=== PATIENT | male | born 1945 | race Two or more races ===

== ENCOUNTER → 2016-08-05 | Outpatient (CLI) | payer OTHER ==
[2016-08-05 14:51] LABS: Basophils # (auto) 0 uL; Basophils % (auto) 0.5 % (0.0-2.0); Eosinophils # (auto) 0.2 uL; Eosinophils % (auto) 2.6 % (0.0-7.0); Hematocrit 45.5 % (41.0-53.0); Lymphocytes # (auto) 2.1 uL; Lymphocytes % (auto) 33.8 % (10.0-50.0); Mean Corpuscular Hemoglobin 28.4 pg (28.0-32.0); Mean Corpuscular Volume 86.1 fL (80.0-100.0); Monocytes # (auto) 0.6 uL; Monocytes % (auto) 9.7 % (0.0-12.0); Neutrophils # (auto) 3.3 uL; Neutrophils % (auto) 53.4 % (37.0-80.0); Platelet Count (auto) 259 10^3/uL (140-450); Red Cell Distribution Width 14.1 % (11.6-16.0); White Blood Cell 6.2 10^3/uL (4.4-10.8)
[2016-08-05 15:08] LABS: Albumin 3.7 g/dL (3.4-5.0); BUN/Creatinine Ratio 10.4; Bilirubin, Total 0.4 mg/dL (0.2-1.0); Calcium 8.7 mg/dL (8.5-10.1); Potassium 3.8 mmol/L (3.5-5.1); Total Protein 7.7 g/dL (6.4-8.2)
== END | disposition home or self-care (01) ==
LOC: LAB 14:23
PROVIDERS: ATTEND Internal Medicine
DX: I10 Essential (primary) hypertension (principal)
CPT/HCPCS: 36415; 80053; 84153; 84403; 85025

== ENCOUNTER → 2016-08-22 | Day surgery (SDC) | payer OTHER ==
[2016-08-19 16:37] LABS: Basophils # (auto) 0 uL; Basophils % (auto) 0.5 % (0.0-2.0); Eosinophils # (auto) 0.2 uL; Eosinophils % (auto) 2.3 % (0.0-7.0); Hematocrit 48.7 % (41.0-53.0); Hemoglobin 15.7 g/dL (13.5-17.5); Lymphocytes # (auto) 2.2 uL; Mean Corpuscular Hemoglobin 28.2 pg (28.0-32.0); Mean Corpuscular Hgb Conc. 32.2 g/dL (32.0-36.0); Mean Corpuscular Volume 87.4 fL (80.0-100.0); Mean Platelet Volume 8.8 fL (7.4-10.4); Monocytes # (auto) 0.5 uL; Monocytes % (auto) 7.3 % (0.0-12.0); Neutrophils # (auto) 3.7 uL; Neutrophils % (auto) 55.9 % (37.0-80.0); Platelet Count (auto) 273 10^3/uL (140-450); Red Cell Distribution Width 14.2 % (11.6-16.0); White Blood Cell 6.6 10^3/uL (4.4-10.8)
[2016-08-19 16:48] LABS: INR 0.97 (0.9-1.15); Partial Thromboplastin Time 31.3 sec (22.64-33.71); Prothrombin Time 10.5 sec (9.37-12.3)
[~2016-08-22] VITALS: Ht 177.8 cm; Wt 117.9 kg
[~2016-08-22] MED LIST: ALLO300T2 PO; ASPI-231 PO; CHOL200031 PO; LISI10TA6 PO; LOVA40TA72 PO; SODIUM CHLORIDE LOCK 10 ML ONE; TEST1.62 TOP; diphenhdrAMINE HCL 50 MG/1 ML VL ONE
[2016-08-22] MEDS: fentaNYL CITRATE 100 MCG/2 ML VL ONE ×2 (10:18→10:25)
[2016-08-22] MEDS: MIDAZOLAM HCL 5 MG/ML-1ML VIAL ONE ×2 (10:18→10:25)
[2016-08-22 11:10] VITALS: BP 141/69
== END ==
LOC: GI 09:27
PROVIDERS: ATTEND Internal Medicine Gastroenterology
DX: Z12.11 Encounter for screening for malignant neoplasm of colon (principal); K57.30 Diverticulosis of large intestine without perforation or abscess without bleeding; K64.8 Other hemorrhoids; Z80.0 Family history of malignant neoplasm of digestive organs; E66.9 Obesity, unspecified
CPT/HCPCS: 36415; 45378; 85025; 85610; 85730; J1200; J2250; J3010

== ENCOUNTER → 2017-03-05 | Day surgery (SDC) | payer OTHER ==
[2017-03-03 13:25] LABS: Urine Bilirubin Negative (Negative); Urine Blood TRACE /uL (Negative); Urine Color Yellow (Yellow); Urine Glucose Normal (Normal); Urine Ketone Negative (Negative); Urine Mucus FEW (None Seen); Urine Nitrite Negative (Negative); Urine RBC <1 /hpf (0 - 3); Urine Squamous Epithelial Cell FEW /hpf (<5); Urine Urobilinogen Normal (Negative)
[2017-03-03 13:33] LABS: Basophils # (auto) 0.1 uL; Basophils % (auto) 0.9 % (0.0-2.0); Eosinophils # (auto) 0.2 uL; Eosinophils % (auto) 2.3 % (0.0-7.0); Hemoglobin 15.5 g/dL (13.5-17.5); Lymphocytes # (auto) 2.5 uL; Lymphocytes % (auto) 32.3 % (10.0-50.0); Mean Corpuscular Hemoglobin 29.6 pg (28.0-32.0); Mean Corpuscular Hgb Conc. 33.7 g/dL (32.0-36.0); Mean Corpuscular Volume 87.7 fL (80.0-100.0); Mean Platelet Volume 8.1 fL (6.9-10.8); Monocytes # (auto) 0.5 uL; Monocytes % (auto) 7.1 % (0.0-12.0); Neutrophils # (auto) 4.4 uL; Neutrophils % (auto) 57.4 % (37.0-80.0); Nucleated Red Blood Cells % 0.1 %; Platelet Count (auto) 250 10^3/uL (140-450); Red Cell Distribution Width 13.9 % (11.8-14.3); White Blood Cell 7.7 10^3/uL (4.4-10.8)
[2017-03-03 13:40] LABS: Albumin 3.7 g/dL (3.4-5.0); BUN/Creatinine Ratio 10.1; Bilirubin, Total 0.5 mg/dL (0.2-1.0); Calcium 8.8 mg/dL (8.5-10.1); Potassium 4.2 mmol/L (3.5-5.1); Total Protein 8.2 g/dL (6.4-8.2)
[2017-03-03 13:51] LABS: INR 0.94 (0.9-1.15); Prothrombin Time 10.3 sec (9.37-12.3)
[~2017-03-05] VITALS: Ht 177.8 cm; Wt 115.7 kg
[~2017-03-05] MED LIST changes: +DEXAMETHASONE SOD PHOS 10MG/1ML VIAL INJ ONE; +HYDROmorphone HCL 2 MG/ML VL IV PRN; +KETOROLAC TROMETH 30 MG/ML 1ML VIAL IV ONE; +LABETALOL HCL 5 MG/ML 4ML SYRINGE IV PRN; +LIDOCAINE 1% HCL (LOCAL ANESTH.) INJ 20ML MDV ONE; +LORA-654 PO; +METOCLOPRAMIDE HCL 5MG/ml INJ 2ml VIAL ONE; +METOPROLOL TARTRATE 1MG/1ML-5ML VIAL IV ONE; +NALOXONE HCL 0.4 MG/ML VIAL IV PRN; +ONDANSETRON HCL 4 MG/2 ML VIAL IV ONE; +ONDANSETRON HCL 4 MG/2 ML VIAL ONE; +PHENYLEPHRINE HCL 10 MG/ML VL IV ONE; +PROPOFOL 10 MG/ML 20 ML IV ONE; -SODIUM CHLORIDE LOCK 10 ML ONE; +SUCCINYLCHOLINE CHLORIDE 20 MG/ML 10ML VIAL IV ONE; -TEST1.62 TOP; +ceFAZolin 1GM VL ONE; +ceFAZolin 1GM/50ML D5W 50 ML IV ONE; -diphenhdrAMINE HCL 50 MG/1 ML VL ONE; +ePHEDrine SULFATE 50 MG/ML AMP ONE; +fentaNYL CITRATE 100 MCG/2 ML VL ONE; +hydrALAZINE HCL 20 MG/ML VL IV PRN
[2017-03-05 12:10] VITALS: BP 132/84
== END | disposition home or self-care (01) ==
LOC: SUR 06:52
PROVIDERS: ATTEND Surgery
DX: K40.90 Unilateral inguinal hernia, without obstruction or gangrene, not specified as recurrent (principal); E66.01 Morbid (severe) obesity due to excess calories; D69.6 Thrombocytopenia, unspecified; G47.30 Sleep apnea, unspecified; I10 Essential (primary) hypertension; E66.9 Obesity, unspecified; E78.5 Hyperlipidemia, unspecified
CPT/HCPCS: 36415; 49505; 80053; 81001; 85025; 85610; 85730; J0330; J0690; J1100; J1170; J1885; J2001; J2370; J2405; J2704; J2765; J3010

== ENCOUNTER → 2017-10-14 | Outpatient (CLI) | payer OTHER ==
[~2017-10-14] MED LIST changes: -DEXAMETHASONE SOD PHOS 10MG/1ML VIAL INJ ONE; -HYDROmorphone HCL 2 MG/ML VL IV PRN; -KETOROLAC TROMETH 30 MG/ML 1ML VIAL IV ONE; -LABETALOL HCL 5 MG/ML 4ML SYRINGE IV PRN; -LIDOCAINE 1% HCL (LOCAL ANESTH.) INJ 20ML MDV ONE; -METOCLOPRAMIDE HCL 5MG/ml INJ 2ml VIAL ONE; -METOPROLOL TARTRATE 1MG/1ML-5ML VIAL IV ONE; -NALOXONE HCL 0.4 MG/ML VIAL IV PRN; -ONDANSETRON HCL 4 MG/2 ML VIAL IV ONE; -ONDANSETRON HCL 4 MG/2 ML VIAL ONE; -PHENYLEPHRINE HCL 10 MG/ML VL IV ONE; -PROPOFOL 10 MG/ML 20 ML IV ONE; -SUCCINYLCHOLINE CHLORIDE 20 MG/ML 10ML VIAL IV ONE; -ceFAZolin 1GM VL ONE; -ceFAZolin 1GM/50ML D5W 50 ML IV ONE; -ePHEDrine SULFATE 50 MG/ML AMP ONE; -fentaNYL CITRATE 100 MCG/2 ML VL ONE; -hydrALAZINE HCL 20 MG/ML VL IV PRN
[2017-10-14 13:11] LABS: Basophils # (auto) 0.1 uL; Basophils % (auto) 1.2 % (0.0-2.0); Eosinophils # (auto) 0.1 uL; Eosinophils % (auto) 1.9 % (0.0-7.0); Hematocrit 44.6 % (41.0-53.0); Hemoglobin 14.8 g/dL (13.5-17.5); Lymphocytes # (auto) 1.9 uL; Lymphocytes % (auto) 34.3 % (10.0-50.0); Mean Corpuscular Hemoglobin 28.7 pg (28.0-32.0); Mean Corpuscular Hgb Conc. 33.2 g/dL (32.0-36.0); Mean Corpuscular Volume 86.4 fL (80.0-100.0); Monocytes # (auto) 0.4 uL; Monocytes % (auto) 6.5 % (0.0-12.0); Neutrophils # (auto) 3.1 uL; Neutrophils % (auto) 56.1 % (37.0-80.0); Nucleated Red Blood Cells % 0.1 %; Platelet Count (auto) 276 10^3/uL (140-450); Red Blood Cells 5.17 10^6/uL (4.5-5.90); Red Cell Distribution Width 14.2 % (11.8-14.3); White Blood Cell 5.6 10^3/uL (4.4-10.8)
[2017-10-14 13:13] LABS: Urine Bacteria NONE SEEN /hpf (None Seen); Urine Blood TRACE /uL (Negative); Urine Mucus FEW (None Seen); Urine Specific Gravity 1.017 (1.001-1.035); Urine WBC 4 /hpf (0 - 3)
[2017-10-14 14:05] LABS: Albumin 3.6 g/dL (3.4-5.0); BUN/Creatinine Ratio 9.7; Bilirubin, Total 0.6 mg/dL (0.2-1.0); Calcium 8.6 mg/dL (8.5-10.1); Total Protein 7.7 g/dL (6.4-8.2); Uric Acid 7.2 mg/dL (3.5-7.2)
== END | disposition home or self-care (01) ==
LOC: LAB 12:54
PROVIDERS: ATTEND Internal Medicine
DX: I10 Essential (primary) hypertension (principal); N40.0 Benign prostatic hyperplasia without lower urinary tract symptoms; E78.5 Hyperlipidemia, unspecified
CPT/HCPCS: 36415; 80053; 80061; 81001; 82043; 84439; 84443; 84550; 85025; 85652

== ENCOUNTER → 2018-01-13 | Outpatient (CLI) | payer OTHER | END | disposition home or self-care (01) | LOC: LAB 11:56 | PROVIDERS: ATTEND Internal Medicine | DX: N40.0 Benign prostatic hyperplasia without lower urinary tract symptoms (principal); R35.0 Frequency of micturition; I10 Essential (primary) hypertension | CPT/HCPCS: 84153 ==

== ENCOUNTER → 2018-07-22 | Outpatient (CLI) | payer OTHER ==
[2018-07-22 11:15] LABS: Potassium 3.7 mmol/L (3.5-5.1)
[2018-07-22 11:23] LABS: Albumin 3.7 g/dL (3.4-5.0); BUN/Creatinine Ratio 12.2; Bilirubin, Total 0.3 mg/dL (0.2-1.0); Calcium 8.5 mg/dL (8.5-10.1); Total Protein 7.9 g/dL (6.4-8.2); Uric Acid 6.6 mg/dL (3.5-7.2)
[2018-07-22 11:53] LABS: Urine Bacteria NONE SEEN /hpf (None Seen); Urine Blood Negative /uL (Negative); Urine Specific Gravity 1.015 (1.001-1.035); Urine WBC 3 /hpf (0 - 3)
[2018-07-22 15:29] LABS: Hematocrit 46.4 % (41.0-53.0); Hemoglobin 15.4 g/dL (13.5-17.5); Mean Corpuscular Hemoglobin 28.9 pg (28.0-32.0); Mean Corpuscular Hgb Conc. 33.1 g/dL (32.0-36.0); Mean Corpuscular Volume 87.1 fL (80.0-100.0); Platelet Count (auto) 234 10^3/uL (140-450); Red Blood Cells 5.32 10^6/uL (4.5-5.90); Red Cell Distribution Width 14.3 % (11.8-14.3); White Blood Cell 6.2 10^3/uL (4.4-10.8)
[2018-07-22 15:31] LABS: Band Neutrophils % (manual) 0; Basophils % (manual) 0 (0.0-2.0); Blast Cells 0; Metamyelocytes % 0; Myelocytes % 0; Promyelocytes % 0; Reactive Lymphocytes 0
[2018-07-22 16:48] LABS: Eosinophils % (manual) 5 (0-7); Lymphocytes % (manual) 30 (10.0-50.0); Monocytes % (manual) 5 (0-12)
== END | disposition home or self-care (01) ==
LOC: LAB 10:02
PROVIDERS: ATTEND Internal Medicine
DX: I10 Essential (primary) hypertension (principal); Z87.442 Personal history of urinary calculi
CPT/HCPCS: 36415; 80053; 80061; 81001; 82043; 83970; 84439; 84443; 84550; 85007; 85027; 85652

== ENCOUNTER → 2019-07-22 | Outpatient (CLI) | payer OTHER ==
[~2019-07-22] MED LIST changes: -LORA-654 PO; +LORA0.5T12 PO
[2019-07-22 10:46] LABS: Urine Bacteria NONE SEEN /hpf (None Seen); Urine Blood TRACE /uL (Negative); Urine Mucus FEW (None Seen); Urine Specific Gravity 1.017 (1.001-1.035); Urine WBC 1 /hpf (0 - 3)
[2019-07-22 10:48] LABS: Basophils # (auto) 0.1 10 ^3/uL (0-0.2); Basophils % (auto) 0.9 % (0.0-2.0); Eosinophils # (auto) 0.2 10 ^3/uL (0-0.8); Eosinophils % (auto) 2.9 % (0.0-7.0); Hematocrit 46.4 % (41.0-53.0); Hemoglobin 15.4 g/dL (13.5-17.5); Lymphocytes % (auto) 32.7 % (10.0-50.0); Mean Corpuscular Hemoglobin 28.8 pg (28.0-32.0); Mean Corpuscular Hgb Conc. 33.1 g/dL (32.0-36.0); Mean Corpuscular Volume 86.8 fL (80.0-100.0); Monocytes # (auto) 0.5 10 ^3/uL (0-1.3); Monocytes % (auto) 8.2 % (0.0-12.0); Neutrophils # (auto) 3.3 10 ^3/uL (1.6-8.6); Neutrophils % (auto) 55.3 % (37.0-80.0); Nucleated Red Blood Cells % 0.1 %; Platelet Count (auto) 245 10^3/uL (140-450); Red Blood Cells 5.35 10^6/uL (4.5-5.90); Red Cell Distribution Width 13.9 % (11.8-14.3)
[2019-07-22 10:53] LABS: INR 1.04 (0.9-1.15)
[2019-07-22 11:05] LABS: Albumin 3.7 g/dL (3.4-5.0); Calcium 8.9 mg/dL (8.5-10.1); Potassium 3.5 mmol/L (3.5-5.1)
[2019-07-22 11:09] LABS: BUN/Creatinine Ratio 12.4; Bilirubin, Total 0.7 mg/dL (0.2-1.0); Total Protein 7.9 g/dL (6.4-8.2)
== END | disposition home or self-care (01) ==
LOC: LAB 10:15
PROVIDERS: ATTEND Internal Medicine
DX: Z01.812 Encounter for preprocedural laboratory examination (principal); I10 Essential (primary) hypertension; G47.30 Sleep apnea, unspecified; N40.0 Benign prostatic hyperplasia without lower urinary tract symptoms
CPT/HCPCS: 36415; 80053; 80061; 81001; 82043; 84439; 84443; 85025; 85610; 85652

== ENCOUNTER 2020-02-18 15:13 | Emergency (ER) | payer OTHER ==
[~2020-02-18] VITALS: Ht 177.8 cm; Wt 117.5 kg
[2020-02-18] MEDS ORDERED: MORPHINE SULFATE 4 MG/ML SYR/VIAL IV ONE (16:30)
[2020-02-18] MEDS ORDERED: ONDANSETRON HCL 4 MG/2 ML VIAL IV ONE (16:30)
[2020-02-18 16:39] LABS: Basophils # (auto) 0.1 10 ^3/uL (0-0.2); Basophils % (auto) 0.4 % (0.0-2.0); Eosinophils # (auto) 0 10 ^3/uL (0-0.8); Eosinophils % (auto) 0.3 % (0.0-7.0); Hematocrit 45.1 % (41.0-53.0); Hemoglobin 15.1 g/dL (13.5-17.5); Lymphocytes % (auto) 8.3 % (10.0-50.0); Mean Corpuscular Hemoglobin 28.7 pg (28.0-32.0); Mean Corpuscular Hgb Conc. 33.4 g/dL (32.0-36.0); Mean Corpuscular Volume 85.8 fL (80.0-100.0); Monocytes # (auto) 0.6 10 ^3/uL (0-1.3); Monocytes % (auto) 5.1 % (0.0-12.0); Neutrophils # (auto) 10.7 10 ^3/uL (1.6-8.6); Neutrophils % (auto) 85.9 % (37.0-80.0); Nucleated Red Blood Cells % 0.1 %; Platelet Count (auto) 228 10^3/uL (140-450); Red Blood Cells 5.26 10^6/uL (4.5-5.90); Red Cell Distribution Width 14.4 % (11.8-14.3); White Blood Cell 12.5 10^3/uL (4.4-10.8)
[2020-02-18 16:52] LABS: Alanine Aminotransferase 29 U/L (16-61); Albumin 3.8 g/dL (3.4-5.0); Anion Gap 7 (5-15); Aspartate Aminotransferase 19 U/L (15-37); BUN/Creatinine Ratio 11.1; Blood Urea Nitrogen 14 mg/dL (7-18); Calcium 8.5 mg/dL (8.5-10.1); Carbon Dioxide 23 mmol/L (21-32); Chloride 108 mmol/L (98-107); GFR African American 72 mL/min; GFR Non-African American 59 mL/min; Glucose 135 mg/dL (74-106); Potassium 3.3 mmol/L (3.5-5.1); Sodium 138 mmol/L (136-145)
[2020-02-18 16:57] LABS: Alkaline Phosphatase 108 U/L (45-117); Bilirubin, Total 0.4 mg/dL (0.2-1.0); Total Protein 7.8 g/dL (6.4-8.2)
[2020-02-18 17:16] LABS: INR 1.02 (0.9-1.15)
[2020-02-18] MEDS ORDERED: ETOMIDATE (2MG/ML) 20ML VIAL IV ONE (18:00)
[2020-02-18] MEDS ORDERED: POTASSIUM EFFERVESENT TAB 25 MEQ PO ONE (19:00)
[2020-02-18 19:34] VITALS: BP 142/67
== END 2020-02-18 20:25 | disposition home or self-care (01) ==
LOC: ER 15:13 → EDBD 15:13 → ER 20:25
DX: S43.004A Unspecified dislocation of right shoulder joint, initial encounter (principal); S83.91XA Sprain of unspecified site of right knee, initial encounter; M25.461 Effusion, right knee; W18.39XA Other fall on same level, initial encounter; Y93.89 Activity, other specified; Y92.89 Other specified places as the place of occurrence of the external cause; Y99.8 Other external cause status
CPT/HCPCS: 23650; 36415; 71045; 71250; 73030; 73060; 73090; 73560; 80053; 84484; 85025; 85610; 85730; 96374; 96375; 99285; J2270; J2405

== ENCOUNTER → 2020-02-18 | Outpatient (CLI) | payer OTHER ==
[~2020-02-18] MED LIST changes: +LISI-648 PO; -LISI10TA6 PO; -LORA0.5T12 PO; +LORA0.5T20 PO
[2020-02-18 08:36] LABS: Basophils # (auto) 0.1 10 ^3/uL (0-0.2); Basophils % (auto) 1.1 % (0.0-2.0); Eosinophils # (auto) 0.1 10 ^3/uL (0-0.8); Eosinophils % (auto) 2.4 % (0.0-7.0); Hematocrit 46.3 % (41.0-53.0); Lymphocytes # (auto) 1.9 10 ^3/uL (0.4-5.4); Lymphocytes % (auto) 34.7 % (10.0-50.0); Mean Corpuscular Hemoglobin 28.2 pg (28.0-32.0); Mean Corpuscular Hgb Conc. 32.4 g/dL (32.0-36.0); Monocytes # (auto) 0.5 10 ^3/uL (0-1.3); Monocytes % (auto) 8.6 % (0.0-12.0); Neutrophils # (auto) 2.9 10 ^3/uL (1.6-8.6); Neutrophils % (auto) 53.2 % (37.0-80.0); Nucleated Red Blood Cells % 0.1 %; Platelet Count (auto) 226 10^3/uL (140-450); Red Blood Cells 5.32 10^6/uL (4.5-5.90); Red Cell Distribution Width 14.8 % (11.8-14.3); White Blood Cell 5.4 10^3/uL (4.4-10.8)
[2020-02-18 08:56] LABS: Albumin 3.8 g/dL (3.4-5.0); Calcium 8.8 mg/dL (8.5-10.1); Potassium 3.8 mmol/L (3.5-5.1)
[2020-02-18 09:00] LABS: BUN/Creatinine Ratio 10.4; Bilirubin, Total 0.5 mg/dL (0.2-1.0); Total Protein 7.8 g/dL (6.4-8.2); Uric Acid 7.3 mg/dL (3.5-7.2)
== END | disposition home or self-care (01) ==
LOC: LABCORP 08:15
PROVIDERS: ATTEND Internal Medicine
DX: N40.0 Benign prostatic hyperplasia without lower urinary tract symptoms (principal); I10 Essential (primary) hypertension
CPT/HCPCS: 36415; 80053; 84153; 84550; 85025

== ENCOUNTER → 2020-06-16 | Outpatient (CLI) | payer OTHER ==
[2020-06-16 10:21] LABS: Basophils # (auto) 0.1 10 ^3/uL (0-0.2); Eosinophils # (auto) 0.1 10 ^3/uL (0-0.8); Eosinophils % (auto) 2.3 % (0.0-7.0); Hematocrit 44.3 % (41.0-53.0); Hemoglobin 14.9 g/dL (13.5-17.5); Lymphocytes # (auto) 1.7 10 ^3/uL (0.4-5.4); Lymphocytes % (auto) 33.2 % (10.0-50.0); Mean Corpuscular Hemoglobin 29.2 pg (28.0-32.0); Mean Corpuscular Hgb Conc. 33.6 g/dL (32.0-36.0); Mean Corpuscular Volume 86.8 fL (80.0-100.0); Monocytes # (auto) 0.4 10 ^3/uL (0-1.3); Monocytes % (auto) 8.3 % (0.0-12.0); Neutrophils # (auto) 2.9 10 ^3/uL (1.6-8.6); Neutrophils % (auto) 55.2 % (37.0-80.0); Nucleated Red Blood Cells % 0.1 %; Platelet Count (auto) 248 10^3/uL (140-450); Red Blood Cells 5.11 10^6/uL (4.5-5.90); White Blood Cell 5.3 10^3/uL (4.4-10.8)
[2020-06-16 10:22] LABS: Urine Bacteria NONE SEEN /hpf (None Seen); Urine Blood Negative /uL (Negative); Urine Specific Gravity 1.016 (1.001-1.035); Urine WBC 2 /hpf (0 - 3)
[2020-06-16 10:48] LABS: Potassium 3.7 mmol/L (3.5-5.1)
[2020-06-16 10:55] LABS: Albumin 3.6 g/dL (3.4-5.0); BUN/Creatinine Ratio 11.4; Bilirubin, Total 0.5 mg/dL (0.2-1.0); Calcium 8.7 mg/dL (8.5-10.1); Uric Acid 6.9 mg/dL (3.5-7.2)
== END | disposition home or self-care (01) ==
LOC: LAB 09:58
PROVIDERS: ATTEND Internal Medicine
DX: I10 Essential (primary) hypertension (principal); K11.1 Hypertrophy of salivary gland; Z87.39 Personal history of other diseases of the musculoskeletal system and connective tissue
CPT/HCPCS: 36415; 80053; 80061; 81001; 84439; 84443; 84550; 85025; 85652; 86235

== ENCOUNTER → 2020-11-14 | Outpatient (CLI) | payer OTHER ==
[~2020-11-14] MED LIST changes: -LISI-648 PO; +LISI-716 PO
== END | disposition home or self-care (01) ==
LOC: RT 14:29
PROVIDERS: ATTEND Internal Medicine
DX: Z13.0 Encounter for screening for diseases of the blood and blood-forming organs and certain disorders involving the immune mechanism (principal); Z98.890 Other specified postprocedural states; Z79.899 Other long term (current) drug therapy
CPT/HCPCS: 36600; 82805

== ENCOUNTER → 2020-11-28 | Outpatient (CLI) | payer OTHER | END | disposition home or self-care (01) | LOC: LAB 14:39 | PROVIDERS: ATTEND Internal Medicine | DX: Z01.812 Encounter for preprocedural laboratory examination (principal) | CPT/HCPCS: 36415; 82565; 84520 ==

== ENCOUNTER → 2020-12-11 | Outpatient (CLI) | payer OTHER ==
[2020-12-11 12:48] LABS: Band Neutrophils % (manual) 0; Basophils % (manual) 0 (0.0-2.0); Blast Cells 0; Metamyelocytes % 0; Myelocytes % 0; Promyelocytes % 0; Reactive Lymphocytes 0
[2020-12-11 12:54] LABS: Hematocrit 48.1 % (41.0-53.0); Hemoglobin 16.3 g/dL (13.5-17.5); Mean Corpuscular Hgb Conc. 33.8 g/dL (32.0-36.0); Mean Corpuscular Volume 85.6 fL (80.0-100.0); Red Blood Cells 5.62 10^6/uL (4.5-5.90); Red Cell Distribution Width 14.3 % (11.8-14.3); White Blood Cell 7.3 10^3/uL (4.4-10.8)
[2020-12-11 13:23] LABS: Eosinophils % (manual) 5 (0-7); Lymphocytes % (manual) 14 (10.0-50.0); Monocytes % (manual) 6 (0-12)
[2020-12-11 13:36] LABS: Potassium 3.5 mmol/L (3.5-5.1)
[2020-12-11 13:47] LABS: Albumin 3.6 g/dL (3.4-5.0); BUN/Creatinine Ratio 13.5; Bilirubin, Total 0.5 mg/dL (0.2-1.0); Calcium 8.9 mg/dL (8.5-10.1); Total Protein 7.9 g/dL (6.4-8.2)
== END | disposition home or self-care (01) ==
LOC: LAB 12:03
PROVIDERS: ATTEND Internal Medicine
DX: I10 Essential (primary) hypertension (principal); R21 Rash and other nonspecific skin eruption
CPT/HCPCS: 36415; 80053; 83615; 85007; 85027; 85652; 86225; 86235; 87040

== ENCOUNTER → 2021-01-31 | Outpatient (CLI) | payer OTHER | END | disposition home or self-care (01) | LOC: Rad HDHVI 08:07 | PROVIDERS: ATTEND Internal Medicine Cardiovascular Disease | DX: I08.0 Rheumatic disorders of both mitral and aortic valves (principal); I11.9 Hypertensive heart disease without heart failure; R94.4 Abnormal results of kidney function studies | CPT/HCPCS: 36415; 82565; 84520; 93306 ==

== ENCOUNTER → 2021-02-01 | Outpatient (CLI) | payer OTHER ==
[~2021-02-01] MED LIST changes: +IOHEXOL 350 MG/ML 100ML IJ ONE
[2021-02-01 09:37] VITALS: BP 149/70
[2021-02-01 10:11] VITALS: BP 155/71
== END | disposition home or self-care (01) ==
LOC: Rad HDHVI 09:30
PROVIDERS: ATTEND Internal Medicine Cardiovascular Disease
DX: R06.02 Shortness of breath (principal); I70.0 Atherosclerosis of aorta; I25.10 Atherosclerotic heart disease of native coronary artery without angina pectoris; N28.1 Cyst of kidney, acquired; K44.9 Diaphragmatic hernia without obstruction or gangrene; M47.814 Spondylosis without myelopathy or radiculopathy, thoracic region; R42 Dizziness and giddiness; M54.2 Cervicalgia
CPT/HCPCS: 70491; 71260; G0463; Q9967

== ENCOUNTER → 2021-03-28 | Outpatient (CLI) | payer OTHER ==
[~2021-03-28] MED LIST changes: +AMLO-489 PO; -ASPI-231 PO; +ASPI1TAB20 PO; -IOHEXOL 350 MG/ML 100ML IJ ONE
[2021-03-28 10:18] VITALS: BP 156/87
[2021-03-28 10:31] VITALS: BP 148/76
[2021-03-28 11:52] LABS: Basophils # (auto) 0.1 10 ^3/uL (0-0.2); Basophils % (auto) 1.2 % (0.0-2.0); Eosinophils # (auto) 0.2 10 ^3/uL (0-0.8); Eosinophils % (auto) 3.8 % (0.0-7.0); Hematocrit 45.4 % (41.0-53.0); Hemoglobin 14.9 g/dL (13.5-17.5); Lymphocytes # (auto) 1.8 10 ^3/uL (0.4-5.4); Lymphocytes % (auto) 39.1 % (10.0-50.0); Mean Corpuscular Hemoglobin 28.6 pg (28.0-32.0); Mean Corpuscular Hgb Conc. 32.9 g/dL (32.0-36.0); Mean Corpuscular Volume 86.8 fL (80.0-100.0); Monocytes # (auto) 0.4 10 ^3/uL (0-1.3); Monocytes % (auto) 9.8 % (0.0-12.0); Neutrophils # (auto) 2.1 10 ^3/uL (1.6-8.6); Neutrophils % (auto) 46.1 % (37.0-80.0); Nucleated Red Blood Cells % 0.2 %; Red Blood Cells 5.23 10^6/uL (4.5-5.90); Red Cell Distribution Width 13.8 % (11.8-14.3); White Blood Cell 4.5 10^3/uL (4.4-10.8)
[2021-03-28 12:13] LABS: INR 1.03 (0.9-1.15); Partial Thromboplastin Time 30.8 sec (23.6-33.0)
[2021-03-28 12:14] LABS: Potassium 4.2 mmol/L (3.5-5.1)
[2021-03-28 12:26] LABS: BUN/Creatinine Ratio 9.2; Calcium 8.6 mg/dL (8.5-10.1)
== END | disposition home or self-care (01) ==
LOC: Rad HDHVI 10:02
PROVIDERS: ATTEND Internal Medicine Cardiovascular Disease
DX: Z01.812 Encounter for preprocedural laboratory examination (principal); I11.0 Hypertensive heart disease with heart failure; I50.9 Heart failure, unspecified; I70.0 Atherosclerosis of aorta
CPT/HCPCS: 36415; 71046; 80048; 85025; 85610; 85730; 93005; G0463

== ENCOUNTER 2021-04-03 11:20 | Day surgery (SDC) | payer OTHER ==
[~2021-04-03] VITALS: Ht 177.8 cm; Wt 117.9 kg
[~2021-04-03 11:20] MED LIST changes: -ALLO300T2 PO; -LISI-716 PO; -LORA0.5T20 PO
[2021-04-03] MEDS ORDERED: IODIXANOL 320MG/ML 100ML BTL IV ONE (12:40)
[2021-04-03] MEDS ORDERED: LIDOCAINE 2%HCL (LOCAL ANESTH.) INJ 20ML MDV ONE (12:40)
[2021-04-03] MEDS ORDERED: fentaNYL CITRATE 100 MCG/2 ML VL ONE (12:59)
[2021-04-03] MEDS ORDERED: MIDAZOLAM HCL 2MG/2ML 2ml VIAL (1mg/ml) ONE (12:59)
[2021-04-03] MEDS ORDERED: ANGIOMAX 250 MG VIAL IV ONE (13:02)
[2021-04-03] MEDS ORDERED: SODIUM CHL 0.9% 0 ML ONE (13:02)
[2021-04-03] MEDS ORDERED: VERAPAMIL 2.5MG/ML INJ 2ML VIAL IV ONE (13:17)
[2021-04-03] MEDS ORDERED: HEPARIN SODIUM (PORCINE) 5000 UNITS/ML 1ML VIAL ONE (14:01)
== END 2021-04-03 16:30 | disposition home or self-care (01) ==
LOC: CATH 11:20
PROVIDERS: ATTEND Internal Medicine Cardiovascular Disease
DX: R94.39 Abnormal result of other cardiovascular function study (principal); I25.5 Ischemic cardiomyopathy; I25.10 Atherosclerotic heart disease of native coronary artery without angina pectoris; I10 Essential (primary) hypertension; E78.5 Hyperlipidemia, unspecified; Z82.49 Family history of ischemic heart disease and other diseases of the circulatory system; Z20.822 Contact with and (suspected) exposure to COVID-19; Z98.890 Other specified postprocedural states; Z79.899 Other long term (current) drug therapy; Z79.82 Long term (current) use of aspirin
CPT/HCPCS: 93458; C1769; C1887; C1894; J1644; J2250; J3010; J7030; Q9967; U0003; 99152; 99153

== ENCOUNTER → 2021-06-27 | Outpatient (CLI) | payer OTHER ==
[2021-06-27 11:29] LABS: Urine Bacteria FEW /hpf (None Seen); Urine Blood TRACE /uL (Negative); Urine Specific Gravity 1.012 (1.001-1.035); Urine Sperm PRESENT /hpf (None Seen); Urine WBC 1 /hpf (0 - 3)
[2021-06-27 12:27] LABS: Basophils # (auto) 0.1 10 ^3/uL (0-0.2); Basophils % (auto) 1.1 % (0.0-2.0); Eosinophils # (auto) 0.2 10 ^3/uL (0-0.8); Eosinophils % (auto) 3.5 % (0.0-7.0); Hematocrit 44.2 % (41.0-53.0); Hemoglobin 14.9 g/dL (13.5-17.5); Lymphocytes # (auto) 1.6 10 ^3/uL (0.4-5.4); Lymphocytes % (auto) 29.5 % (10.0-50.0); Mean Corpuscular Hgb Conc. 33.7 g/dL (32.0-36.0); Monocytes # (auto) 0.4 10 ^3/uL (0-1.3); Monocytes % (auto) 6.8 % (0.0-12.0); Neutrophils # (auto) 3.2 10 ^3/uL (1.6-8.6); Neutrophils % (auto) 59.1 % (37.0-80.0); Red Blood Cells 5.14 10^6/uL (4.5-5.90); White Blood Cell 5.4 10^3/uL (4.4-10.8)
[2021-06-27 12:46] LABS: Calcium 8.9 mg/dL (8.5-10.1)
[2021-06-27 12:54] LABS: Albumin 3.7 g/dL (3.4-5.0); BUN/Creatinine Ratio 12.7; Bilirubin, Total 0.4 mg/dL (0.2-1.0); Total Protein 7.7 g/dL (6.4-8.2)
[2021-06-27 12:55] LABS: Free T4 (Free Thyroxine) 1.08 ng/dL (0.89-1.76)
== END | disposition home or self-care (01) ==
LOC: LAB 10:26
PROVIDERS: ATTEND Internal Medicine
DX: L92.0 Granuloma annulare (principal); I10 Essential (primary) hypertension
CPT/HCPCS: 36415; 80053; 80061; 81001; 84153; 84439; 84443; 85025; 85652

== ENCOUNTER 2021-07-07 19:26 | Emergency (ER) | payer OTHER ==
[~2021-07-07] VITALS: Ht 177.8 cm; Wt 117.9 kg
[2021-07-07 23:30] VITALS: BP 120/59
== END 2021-07-07 23:54 | disposition home or self-care (01) ==
LOC: ER 19:28
DX: T78.3XXA Angioneurotic edema, initial encounter (principal); I10 Essential (primary) hypertension; Z88.8 Allergy status to other drugs, medicaments and biological substances; X58.XXXA Exposure to other specified factors, initial encounter

== ENCOUNTER 2021-07-14 11:06 | Emergency (ER) | payer OTHER ==
[~2021-07-14] VITALS: Ht 177.8 cm; Wt 117.9 kg
[2021-07-14] MEDS ORDERED: EPINEPHrine HCL 1 MG/1 ML AMP SC ONE (11:30)
[2021-07-14] MEDS ORDERED: methylPREDNISolone SOD SUCC 125 MG/2 ML VL IM ONE (11:30)
[2021-07-14 11:54] VITALS: BP 167/89
[2021-07-14] MEDS ORDERED: METH4PAK PO (12:38)
== END 2021-07-14 12:42 | disposition home or self-care (01) ==
LOC: ER 11:06
DX: R22.0 Localized swelling, mass and lump, head (principal); T78.3XXD Angioneurotic edema, subsequent encounter; I10 Essential (primary) hypertension; Z88.6 Allergy status to analgesic agent
CPT/HCPCS: 96372; 99284; J0171; J2930

== ENCOUNTER 2021-07-22 16:52 | Emergency (ER) | payer OTHER ==
[~2021-07-22] VITALS: Ht 177.8 cm; Wt 117.9 kg
[~2021-07-22 16:52] MED LIST changes: +METH4PAK PO
[2021-07-22 20:29] VITALS: BP 126/61
[2021-07-22] MEDS ORDERED: DexAMETHasone SOD PHOS 10MG/1ML VIAL INJ IM ONE (21:00)
[2021-07-22] MEDS ORDERED: METH4PAK PO (21:15)
== END 2021-07-22 21:20 | disposition home or self-care (01) ==
LOC: ER 16:52
DX: T78.40XA Allergy, unspecified, initial encounter (principal); I10 Essential (primary) hypertension; Z88.8 Allergy status to other drugs, medicaments and biological substances; X58.XXXA Exposure to other specified factors, initial encounter
CPT/HCPCS: 96372; 99283; J1100

== ENCOUNTER → 2021-10-09 | Outpatient (CLI) | payer OTHER ==
[2021-10-09 11:50] LABS: Basophils # (auto) 0.1 10 ^3/uL (0-0.2); Basophils % (auto) 1.4 % (0.0-2.0); Eosinophils # (auto) 0.1 10 ^3/uL (0-0.8); Eosinophils % (auto) 2.8 % (0.0-7.0); Hematocrit 43.8 % (41.0-53.0); Hemoglobin 14.6 g/dL (13.5-17.5); Lymphocytes # (auto) 1.6 10 ^3/uL (0.4-5.4); Mean Corpuscular Hemoglobin 28.9 pg (28.0-32.0); Mean Corpuscular Hgb Conc. 33.3 g/dL (32.0-36.0); Mean Corpuscular Volume 86.9 fL (80.0-100.0); Monocytes # (auto) 0.3 10 ^3/uL (0-1.3); Monocytes % (auto) 6.7 % (0.0-12.0); Neutrophils # (auto) 2.6 10 ^3/uL (1.6-8.6); Neutrophils % (auto) 55.1 % (37.0-80.0); Nucleated Red Blood Cells % 0.1 %; Red Blood Cells 5.05 10^6/uL (4.5-5.90); White Blood Cell 4.8 10^3/uL (4.4-10.8)
[2021-10-09 11:57] LABS: Urine Bacteria NONE SEEN /hpf (None Seen); Urine Blood TRACE /uL (Negative); Urine Specific Gravity 1.011 (1.001-1.035); Urine WBC 1 /hpf (0 - 3)
[2021-10-09 12:37] LABS: Potassium 3.9 mmol/L (3.5-5.1)
[2021-10-09 12:51] LABS: Albumin 3.5 g/dL (3.4-5.0); BUN/Creatinine Ratio 10.5; Bilirubin, Total 0.4 mg/dL (0.2-1.0); Calcium 8.4 mg/dL (8.5-10.1); Total Protein 7.3 g/dL (6.4-8.2); Uric Acid 6.2 mg/dL (3.5-7.2)
== END | disposition home or self-care (01) ==
LOC: LAB 11:11
PROVIDERS: ATTEND Internal Medicine
DX: I10 Essential (primary) hypertension (principal)
CPT/HCPCS: 36415; 80053; 80061; 81001; 82785; 84439; 84443; 84550; 85025; 85652

== ENCOUNTER → 2022-03-27 | Outpatient (CLI) | payer OTHER ==
[2022-03-27 13:01] LABS: Basophils # (auto) 0.1 10 ^3/uL (0-0.2); Basophils % (auto) 1.2 % (0.0-2.0); Eosinophils # (auto) 0.2 10 ^3/uL (0-0.8); Eosinophils % (auto) 2.3 % (0.0-7.0); Hemoglobin 16.2 g/dL (13.5-17.5); Lymphocytes # (auto) 1.9 10 ^3/uL (0.4-5.4); Lymphocytes % (auto) 28.6 % (10.0-50.0); Mean Corpuscular Hemoglobin 28.7 pg (28.0-32.0); Mean Corpuscular Hgb Conc. 33.1 g/dL (32.0-36.0); Mean Corpuscular Volume 86.8 fL (80.0-100.0); Monocytes # (auto) 0.5 10 ^3/uL (0-1.3); Monocytes % (auto) 7.5 % (0.0-12.0); Neutrophils % (auto) 60.4 % (37.0-80.0); Nucleated Red Blood Cells % 0.1 %; Red Blood Cells 5.65 10^6/uL (4.5-5.90); White Blood Cell 6.6 10^3/uL (4.4-10.8)
[2022-03-27 13:50] LABS: Albumin 3.9 g/dL (3.4-5.0); BUN/Creatinine Ratio 7.3; Bilirubin, Total 0.6 mg/dL (0.2-1.0); Calcium 8.7 mg/dL (8.5-10.1); Potassium 4.1 mmol/L (3.5-5.1); Total Protein 7.7 g/dL (6.4-8.2)
== END | disposition home or self-care (01) ==
LOC: LAB 12:49
PROVIDERS: ATTEND Internal Medicine
DX: I10 Essential (primary) hypertension (principal); K59.00 Constipation, unspecified
CPT/HCPCS: 36415; 80053; 84443; 85025

== ENCOUNTER → 2022-07-01 | Outpatient (CLI) | payer OTHER ==
[2022-07-01 12:22] LABS: Basophils # (auto) 0.1 10 ^3/uL (0-0.2); Basophils % (auto) 1.1 % (0.0-2.0); Eosinophils # (auto) 0.1 10 ^3/uL (0-0.8); Eosinophils % (auto) 2.7 % (0.0-7.0); Hematocrit 45.4 % (41.0-53.0); Hemoglobin 15.7 g/dL (13.5-17.5); Lymphocytes # (auto) 1.7 10 ^3/uL (0.4-5.4); Lymphocytes % (auto) 35.9 % (10.0-50.0); Mean Corpuscular Hemoglobin 30.2 pg (28.0-32.0); Mean Corpuscular Hgb Conc. 34.6 g/dL (32.0-36.0); Mean Corpuscular Volume 87.3 fL (80.0-100.0); Monocytes # (auto) 0.4 10 ^3/uL (0-1.3); Monocytes % (auto) 7.9 % (0.0-12.0); Neutrophils # (auto) 2.5 10 ^3/uL (1.6-8.6); Neutrophils % (auto) 52.4 % (37.0-80.0); Nucleated Red Blood Cells % 0.1 %; Red Cell Distribution Width 14.1 % (11.8-14.3); White Blood Cell 4.7 10^3/uL (4.4-10.8)
[2022-07-01 12:46] LABS: Urine Bacteria NONE SEEN /hpf (None Seen); Urine Blood Negative /uL (Negative); Urine Specific Gravity 1.008 (1.001-1.035); Urine WBC 3 /hpf (0 - 3)
[2022-07-01 12:51] LABS: Albumin 3.7 g/dL (3.4-5.0)
[2022-07-01 12:57] LABS: Free T4 (Free Thyroxine) 1.33 ng/dL (0.89-1.76); Prostate Specific Antigen 3.94 ng/mL (0.0-4.0)
[2022-07-01 12:58] LABS: BUN/Creatinine Ratio 10.7; Bilirubin, Total 0.6 mg/dL (0.2-1.0); CRP High Sensitivity 0.07 mg/dL (< 0.3); Calcium 8.7 mg/dL (8.5-10.1); Total Protein 7.6 g/dL (6.4-8.2)
== END | disposition home or self-care (01) ==
LOC: LAB 11:40
PROVIDERS: ATTEND Internal Medicine
DX: N40.0 Benign prostatic hyperplasia without lower urinary tract symptoms (principal); K59.09 Other constipation; I10 Essential (primary) hypertension; R07.89 Other chest pain
CPT/HCPCS: 36415; 80053; 80061; 81001; 84153; 84439; 84443; 85025; 85652; 86141; 86677

== ENCOUNTER → 2022-07-03 | Outpatient (CLI) | payer OTHER | END | disposition home or self-care (01) | LOC: LAB 14:14 | PROVIDERS: ATTEND Internal Medicine | DX: I10 Essential (primary) hypertension (principal); N40.0 Benign prostatic hyperplasia without lower urinary tract symptoms; R07.89 Other chest pain | CPT/HCPCS: 85048; 87045; 87177; 87427 ==

== ENCOUNTER → 2022-08-19 | Outpatient (CLI) | payer OTHER | END | disposition home or self-care (01) | LOC: LAB 10:39 | PROVIDERS: ATTEND Internal Medicine | DX: R63.4 Abnormal weight loss (principal) | CPT/HCPCS: 36415; 82565; 84520 ==

== ENCOUNTER 2022-09-04 12:36 | Day surgery (SDC) | payer OTHER ==
[2022-09-02 10:41] LABS: Partial Thromboplastin Time 30.8 sec (24.6-33.4)
[2022-09-02 10:54] LABS: Basophils # (auto) 0.1 10 ^3/uL (0-0.2); Basophils % (auto) 1.4 % (0.0-2.0); Eosinophils # (auto) 0.1 10 ^3/uL (0-0.8); Eosinophils % (auto) 2.3 % (0.0-7.0); Hemoglobin 15.8 g/dL (13.5-17.5); Lymphocytes # (auto) 1.6 10 ^3/uL (0.4-5.4); Lymphocytes % (auto) 36.4 % (10.0-50.0); Mean Corpuscular Hemoglobin 29.4 pg (28.0-32.0); Mean Corpuscular Hgb Conc. 33.6 g/dL (32.0-36.0); Mean Corpuscular Volume 87.4 fL (80.0-100.0); Monocytes # (auto) 0.4 10 ^3/uL (0-1.3); Monocytes % (auto) 9.9 % (0.0-12.0); Neutrophils # (auto) 2.2 10 ^3/uL (1.6-8.6); Nucleated Red Blood Cells % 0.4 %; Red Blood Cells 5.38 10^6/uL (4.5-5.90); Red Cell Distribution Width 13.8 % (11.8-14.3); White Blood Cell 4.5 10^3/uL (4.4-10.8)
[2022-09-02 11:01] LABS: Potassium 4.4 mmol/L (3.5-5.1)
[2022-09-02 11:11] LABS: Albumin 3.6 g/dL (3.4-5.0); Bilirubin, Total 0.6 mg/dL (0.2-1.0); Calcium 9.2 mg/dL (8.5-10.1); Total Protein 7.7 g/dL (6.4-8.2)
[~2022-09-04] VITALS: Ht 177.8 cm; Wt 110.2 kg
[~2022-09-04 12:36] MED LIST changes: -LOVA40TA72 PO; -METH4PAK PO
[2022-09-04] MEDS ORDERED: diphenhdrAMINE HCL 50 MG/1 ML VL ONE (12:58)
[2022-09-04] MEDS ORDERED: LIDOCAINE VISCOUS 2% 15ML UD ONE (12:58)
[2022-09-04] MEDS ORDERED: MIDAZOLAM HCL 5 MG/ML-1ML VIAL ONE (12:58)
[2022-09-04] MEDS ORDERED: fentaNYL CITRATE 100 MCG/2 ML VL ONE (12:59)
[2022-09-04] MEDS ORDERED: PROPOFOL 10 MG/ML 20 ML IV ONE (14:03)
[2022-09-04] MEDS ORDERED: LIDOCAINE 2% (LOCAL ANESTH.) PF 5ml SDV ONE (14:04)
[2022-09-04 14:45] VITALS: BP 132/72
== END 2022-09-04 15:03 | disposition home or self-care (01) ==
LOC: GI 12:36
PROVIDERS: ATTEND Internal Medicine Gastroenterology
DX: R10.13 Epigastric pain (principal); K44.9 Diaphragmatic hernia without obstruction or gangrene; K25.9 Gastric ulcer, unspecified as acute or chronic, without hemorrhage or perforation; K59.09 Other constipation; A04.8 Other specified bacterial intestinal infections; K29.50 Unspecified chronic gastritis without bleeding; I11.0 Hypertensive heart disease with heart failure; I50.23 Acute on chronic systolic (congestive) heart failure; Z79.899 Other long term (current) drug therapy; K21.00 Gastro-esophageal reflux disease with esophagitis, without bleeding
CPT/HCPCS: 36415; 43239; 80053; 85025; 85610; 85730; 88305; 88312; 88342; J1200; J2001; J2250; J2704; J3010; J7030

== ENCOUNTER 2023-02-28 07:49 | Day surgery (SDC) | payer OTHER ==
[2023-02-26 15:04] LABS: Basophils # (auto) 0.1 10 ^3/uL (0-0.2); Basophils % (auto) 1.2 % (0.0-2.0); Eosinophils # (auto) 0.1 10 ^3/uL (0-0.8); Hematocrit 46.4 % (41.0-53.0); Hemoglobin 15.4 g/dL (13.5-17.5); Mean Corpuscular Hemoglobin 29.6 pg (28.0-32.0); Mean Corpuscular Hgb Conc. 33.2 g/dL (32.0-36.0); Mean Corpuscular Volume 89.2 fL (80.0-100.0); Monocytes # (auto) 0.5 10 ^3/uL (0-1.3); Monocytes % (auto) 8.3 % (0.0-12.0); Neutrophils # (auto) 3.2 10 ^3/uL (1.6-8.6); Neutrophils % (auto) 54.5 % (37.0-80.0); Nucleated Red Blood Cells % 0.1 %; Red Cell Distribution Width 13.5 % (11.8-14.3); White Blood Cell 5.9 10^3/uL (4.4-10.8)
[2023-02-26 15:11] LABS: INR 1.02 (0.9-1.15); Prothrombin Time 10.7 sec (9.3-11.8)
[2023-02-26 15:44] LABS: Alanine Aminotransferase 13 U/L (7-40); Albumin 4.6 g/dL (3.2-4.8); Alkaline Phosphatase 110 U/L (46-116); Anion Gap 5 (5-15); Aspartate Aminotransferase 13 U/L (13-40); BUN/Creatinine Ratio 8.9 (10.0-20.0); Bilirubin, Total 0.7 mg/dL (0.2-1.0); Blood Urea Nitrogen 11 mg/dL (9-23); Calcium 9.6 mg/dL (8.5-10.1); Carbon Dioxide 28 mmol/L (20-30); Chloride 106 mmol/L (98-107); Glucose 101 mg/dL (74-106); Potassium 5.3 mmol/L (3.5-5.1); Sodium 139 mmol/L (136-145); Total Protein 7.7 g/dL (5.7-8.2)
[~2023-02-28] VITALS: Ht 177.8 cm; Wt 108.9 kg
[~2023-02-28 07:49] MED LIST changes: -AMLO-489 PO; +AMLO1TAB22 PO; +DOCU-94 PO; +LATA0.008 OP; +MELA3TAB27 PO; +TRIA0.02 EX
[2023-02-28 09:09] VITALS: PULSE 84; RESP 16; O2SAT 97
[2023-02-28] MEDS: diphenhdrAMINE HCL 50 MG/1 ML VL ONE ×2 (09:12→09:14)
[2023-02-28] MEDS: fentaNYL CITRATE 100 MCG/2 ML VL ONE ×2 (09:12→09:15)
[2023-02-28] MEDS: MIDAZOLAM HCL 2MG/2ML 2ml VIAL (1mg/ml) ONE ×2 (09:12→09:15)
[2023-02-28 10:20] VITALS: BP 120/74; PULSE 72; RESP 20; O2SAT 98
== END 2023-02-28 10:30 | disposition home or self-care (01) ==
LOC: GI 07:49
PROVIDERS: ATTEND Internal Medicine Gastroenterology
DX: K59.09 Other constipation (principal); K57.30 Diverticulosis of large intestine without perforation or abscess without bleeding; K64.0 First degree hemorrhoids; Z80.0 Family history of malignant neoplasm of digestive organs; I10 Essential (primary) hypertension; E78.5 Hyperlipidemia, unspecified; Z79.899 Other long term (current) drug therapy; Z98.890 Other specified postprocedural states
CPT/HCPCS: 36415; 45380; 80053; 85025; 85610; 85730; J1200; J2250; J3010; J7030; 99152; 99153

== ENCOUNTER → 2023-05-28 | Outpatient (CLI) | payer OTHER ==
[2023-05-28 10:20] LABS: Basophils # (auto) 0.1 10 ^3/uL (0-0.2); Basophils % (auto) 1.1 % (0.0-2.0); Eosinophils # (auto) 0.2 10 ^3/uL (0-0.8); Eosinophils % (auto) 3.3 % (0.0-7.0); Hematocrit 43.6 % (41.0-53.0); Hemoglobin 14.5 g/dL (13.5-17.5); Lymphocytes # (auto) 1.6 10 ^3/uL (0.4-5.4); Lymphocytes % (auto) 24.6 % (10.0-50.0); Mean Corpuscular Hemoglobin 29.7 pg (28.0-32.0); Mean Corpuscular Hgb Conc. 33.2 g/dL (32.0-36.0); Mean Corpuscular Volume 89.4 fL (80.0-100.0); Monocytes # (auto) 0.7 10 ^3/uL (0-1.3); Monocytes % (auto) 10.8 % (0.0-12.0); Neutrophils % (auto) 60.2 % (37.0-80.0); Red Blood Cells 4.88 10^6/uL (4.5-5.90); White Blood Cell 6.6 10^3/uL (4.4-10.8)
[2023-05-28 11:09] LABS: Albumin 4.4 g/dL (3.2-4.8); Alkaline Phosphatase 99 U/L (46-116); Anion Gap 7 (5-15); Aspartate Aminotransferase 12 U/L (13-40); BUN/Creatinine Ratio 12.4 (10.0-20.0); Blood Urea Nitrogen 15 mg/dL (9-23); Calcium 9.2 mg/dL (8.5-10.1); Carbon Dioxide 28 mmol/L (20-30); Chloride 106 mmol/L (98-107); Glucose 94 mg/dL (74-106); Potassium 4.1 mmol/L (3.5-5.1); Sodium 141 mmol/L (136-145)
[2023-05-28 11:10] LABS: Bilirubin, Total 0.7 mg/dL (0.2-1.0); Total Protein 7.1 g/dL (5.7-8.2)
[2023-05-28 11:13] LABS: Alanine Aminotransferase 9 U/L (7-40)
== END | disposition home or self-care (01) ==
LOC: LAB 10:02
PROVIDERS: ATTEND Internal Medicine
DX: M22.90 Unspecified disorder of patella, unspecified knee (principal)
CPT/HCPCS: 36415; 80053; 83615; 85025

== ENCOUNTER → 2023-06-20 | Outpatient (CLI) | payer OTHER | END | disposition home or self-care (01) | LOC: LAB 15:54 | PROVIDERS: ATTEND Internal Medicine | DX: Z01.812 Encounter for preprocedural laboratory examination (principal); R22.42 Localized swelling, mass and lump, left lower limb | CPT/HCPCS: 36415; 82565; 84520 ==

== ENCOUNTER 2023-09-25 13:39 | Emergency (ER) | payer OTHER ==
[~2023-09-25] VITALS: Ht 180.3 cm; Wt 109.0 kg
[2023-09-25 14:42] VITALS: BP 135/77; PULSE 86; RESP 18; TEMP 98.2; O2SAT 98
[2023-09-25] MEDS: LIDOCAINE 1% HCL (LOCAL ANESTH.) INJ 20ML MDV IJ ONE (15:05)
[2023-09-25] MEDS: NEOMYCIN-BACITRACIN-POLYM 15GM TOP OINT TOP ONE (15:30)
[2023-09-25] MEDS ORDERED: CEPH500C PO (15:32)
[2023-09-25] MEDS ORDERED: ACET-1080 PO (15:37)
== END 2023-09-25 14:54 | disposition home or self-care (01) ==
LOC: EDUNIT# 13:39 → ER 13:39 → EDBD 13:39 → ER 14:54
DX: S81.032A Puncture wound without foreign body, left knee, initial encounter (principal); I10 Essential (primary) hypertension; Z79.82 Long term (current) use of aspirin; Z79.899 Other long term (current) drug therapy; Z88.8 Allergy status to other drugs, medicaments and biological substances; X58.XXXA Exposure to other specified factors, initial encounter; Y93.89 Activity, other specified; Y92.89 Other specified places as the place of occurrence of the external cause; Y99.8 Other external cause status
CPT/HCPCS: 12001; 99283; J2001

== ENCOUNTER → 2023-10-02 | Outpatient (CLI) | payer OTHER ==
[~2023-10-02] MED LIST changes: +ACET-1080 PO; +CEPH500C PO
[2023-10-02 11:26] LABS: Basophils # (auto) 0.1 10 ^3/uL (0-0.2); Basophils % (auto) 1.5 % (0.0-2.0); Eosinophils # (auto) 0.2 10 ^3/uL (0-0.8); Eosinophils % (auto) 3.4 % (0.0-7.0); Hematocrit 45.1 % (41.0-53.0); Lymphocytes # (auto) 1.8 10 ^3/uL (0.4-5.4); Lymphocytes % (auto) 29.9 % (10.0-50.0); Mean Corpuscular Hemoglobin 29.1 pg (28.0-32.0); Mean Corpuscular Hgb Conc. 33.3 g/dL (32.0-36.0); Mean Corpuscular Volume 87.6 fL (80.0-100.0); Monocytes # (auto) 0.5 10 ^3/uL (0-1.3); Monocytes % (auto) 7.4 % (0.0-12.0); Neutrophils # (auto) 3.6 10 ^3/uL (1.6-8.6); Neutrophils % (auto) 57.8 % (37.0-80.0); Red Blood Cells 5.15 10^6/uL (4.5-5.90); Red Cell Distribution Width 14.5 % (11.8-14.3); White Blood Cell 6.2 10^3/uL (4.4-10.8)
[2023-10-02 11:45] LABS: INR 1.03 (0.9-1.15); Prothrombin Time 10.9 sec (9.3-11.8)
[2023-10-02 12:02] LABS: Erythrocyte Sedimentation Rate 8 mm/hr (0-20)
[2023-10-02 12:22] LABS: Prostate Specific Antigen 3.43 ng/mL (0.0-4.0)
[2023-10-02 12:23] LABS: Albumin 4.4 g/dL (3.2-4.8); Alkaline Phosphatase 94 U/L (46-116); Anion Gap 4 (5-15); Aspartate Aminotransferase 10 U/L (13-40); BUN/Creatinine Ratio 9.3 (10.0-20.0); Blood Urea Nitrogen 11 mg/dL (9-23); Calcium 9.6 mg/dL (8.5-10.1); Carbon Dioxide 29 mmol/L (20-30); Chloride 107 mmol/L (98-107); Cholesterol 185 mg/dL (< 200); Glucose 92 mg/dL (74-106); LDL Cholesterol 134 mg/dL (< 100); Potassium 4.5 mmol/L (3.5-5.1); Sodium 140 mmol/L (136-145); Triglycerides 103 mg/dL (< 150)
[2023-10-02 12:24] LABS: Bilirubin, Total 0.5 mg/dL (0.2-1.0); HDL Cholesterol 42 mg/dL (40-59); Total Protein 7.3 g/dL (5.7-8.2)
[2023-10-02 12:27] LABS: Free T4 (Free Thyroxine) 1.15 ng/dL (0.89-1.76)
[2023-10-02 12:31] LABS: Alanine Aminotransferase < 9 U/L (7-40)
== END | disposition home or self-care (01) ==
LOC: LAB 11:00
PROVIDERS: ATTEND Internal Medicine
DX: N40.0 Benign prostatic hyperplasia without lower urinary tract symptoms (principal); C49.9 Malignant neoplasm of connective and soft tissue, unspecified; I10 Essential (primary) hypertension
CPT/HCPCS: 36415; 80053; 80061; 84153; 84439; 84443; 85025; 85610; 85652

== ENCOUNTER → 2023-11-26 | Outpatient (CLI) | payer OTHER | END | disposition home or self-care (01) | LOC: LAB 14:17 | PROVIDERS: ATTEND Internal Medicine | DX: C49.9 Malignant neoplasm of connective and soft tissue, unspecified (principal) | CPT/HCPCS: 36415; 82565; 84520 ==

== ENCOUNTER → 2023-12-31 | Outpatient (CLI) | payer OTHER ==
[2023-12-31 11:29] LABS: Urine Bacteria None Seen /hpf (None Seen)
[2023-12-31 11:42] LABS: Basophils # (auto) 0.1 10 ^3/uL (0-0.2); Basophils % (auto) 1.1 % (0.0-2.0); Eosinophils # (auto) 0.2 10 ^3/uL (0-0.8); Eosinophils % (auto) 3.7 % (0.0-7.0); Hematocrit 43.3 % (41.0-53.0); Hemoglobin 14.6 g/dL (13.5-17.5); Lymphocytes # (auto) 1.7 10 ^3/uL (0.4-5.4); Mean Corpuscular Hemoglobin 29.5 pg (28.0-32.0); Mean Corpuscular Hgb Conc. 33.8 g/dL (32.0-36.0); Mean Corpuscular Volume 87.2 fL (80.0-100.0); Monocytes # (auto) 0.6 10 ^3/uL (0-1.3); Monocytes % (auto) 9.3 % (0.0-12.0); Neutrophils # (auto) 3.4 10 ^3/uL (1.6-8.6); Neutrophils % (auto) 56.9 % (37.0-80.0); Platelet Count (auto) 253 10^3/uL (140-450); Red Blood Cells 4.97 10^6/uL (4.5-5.90); Red Cell Distribution Width 14.2 % (11.8-14.3)
[2023-12-31 11:44] LABS: Urine Blood Negative /uL (Negative); Urine Clarity Clear (Clear); Urine Color Yellow (Yellow); Urine Mucus FEW (None Seen); Urine Protein, UAD Negative (Negative); Urine Specific Gravity 1.022 (1.001-1.035); Urine Urobilinogen Normal (Negative); Urine WBC 2 /hpf (0 - 3)
[2023-12-31 11:46] LABS: Prothrombin Time 10.6 sec (9.3-11.8)
[2023-12-31 12:05] LABS: Erythrocyte Sedimentation Rate 23 mm/hr (0-20)
[2023-12-31 12:26] LABS: Albumin 4.2 g/dL (3.2-4.8); Alkaline Phosphatase 104 U/L (46-116); Anion Gap 5 (5-15); Aspartate Aminotransferase 10 U/L (13-40); BUN/Creatinine Ratio 8.5 (10.0-20.0); Blood Urea Nitrogen 10 mg/dL (9-23); Calcium 9.1 mg/dL (8.7-10.4); Carbon Dioxide 27 mmol/L (20-30); Chloride 105 mmol/L (98-107); Glucose 99 mg/dL (74-106); Potassium 4.7 mmol/L (3.5-5.1); Sodium 137 mmol/L (136-145)
[2023-12-31 12:27] LABS: Bilirubin, Total 0.4 mg/dL (0.2-1.0); Total Protein 7.4 g/dL (5.7-8.2)
[2023-12-31 12:29] LABS: Alanine Aminotransferase < 9 U/L (7-40)
== END | disposition home or self-care (01) ==
LOC: LAB 11:15
PROVIDERS: ATTEND Internal Medicine
DX: Z01.812 Encounter for preprocedural laboratory examination (principal); I10 Essential (primary) hypertension; I50.23 Acute on chronic systolic (congestive) heart failure
CPT/HCPCS: 36415; 80053; 81001; 85025; 85610; 85652

== ENCOUNTER → 2024-06-30 | Outpatient (CLI) | payer OTHER ==
[2024-06-30 12:21] LABS: Urine Bacteria None Seen /hpf (None Seen)
[2024-06-30 12:22] LABS: Basophils # (auto) 0 10 ^3/uL (0-0.2); Basophils % (auto) 0.4 % (0.0-2.0); Eosinophils # (auto) 0.3 10 ^3/uL (0-0.8); Eosinophils % (auto) 6.7 % (0.0-7.0); Hematocrit 44.5 % (41.0-53.0); Hemoglobin 14.3 g/dL (13.5-17.5); Lymphocytes # (auto) 1.8 10 ^3/uL (0.4-5.4); Lymphocytes % (auto) 36.5 % (10.0-50.0); Mean Corpuscular Hemoglobin 27.2 pg (28.0-32.0); Monocytes # (auto) 0.4 10 ^3/uL (0-1.3); Monocytes % (auto) 8.8 % (0.0-12.0); Neutrophils # (auto) 2.4 10 ^3/uL (1.6-8.6); Neutrophils % (auto) 47.6 % (37.0-80.0); Platelet Count (auto) 243 10^3/uL (140-450); Red Blood Cells 5.24 10^6/uL (4.5-5.90); Red Cell Distribution Width 14.7 % (11.8-14.3); White Blood Cell 4.9 10^3/uL (4.4-10.8)
[2024-06-30 12:44] LABS: INR 1.01 (0.9-1.15); Partial Thromboplastin Time 29.4 SEC (24.5-34.5); Prothrombin Time 10.7 sec (9.3-11.8)
[2024-06-30 12:50] LABS: Albumin 4.5 g/dL (3.2-4.8); Alkaline Phosphatase 91 U/L (46-116); Anion Gap 8 (5-15); BUN/Creatinine Ratio 14.4 (10.0-20.0); Bilirubin, Total 0.6 mg/dL (0.2-1.0); Blood Urea Nitrogen 17 mg/dL (9-23); Calcium 9.7 mg/dL (8.7-10.4); Carbon Dioxide 27 mmol/L (20-31); Chloride 105 mmol/L (98-107); Glucose 100 mg/dL (74-106); Potassium 4.3 mmol/L (3.5-5.1); Sodium 140 mmol/L (136-145); Total Protein 7.2 g/dL (5.7-8.2)
[2024-06-30 12:53] LABS: Alanine Aminotransferase < 9 U/L (7-40); Aspartate Aminotransferase 10 U/L (13-40)
[2024-06-30 12:55] LABS: Urine Blood Negative /uL (Negative); Urine Clarity Clear (Clear); Urine Color Light-Yellow (Yellow); Urine Mucus FEW (None Seen); Urine Protein, UAD Negative (Negative); Urine Specific Gravity 1.019 (1.001-1.035); Urine Squamous Epithelial Cell FEW /hpf (<5); Urine Urobilinogen Normal (Negative); Urine WBC 2 /HPF (0-3)
== END | disposition home or self-care (01) ==
LOC: LAB 12:12
PROVIDERS: ATTEND Internal Medicine
DX: Z01.812 Encounter for preprocedural laboratory examination (principal); I10 Essential (primary) hypertension
CPT/HCPCS: 36415; 80053; 81001; 85025; 85610; 85730

== ENCOUNTER 2025-03-31 10:08 | Outpatient (CLI) | payer OTHER ==
[2025-03-31 10:49] LABS: Hematocrit 43.3 % (41.0-53.0); Hemoglobin 14.5 g/dL (13.5-17.5); Mean Corpuscular Hemoglobin 29.7 pg (28.0-32.0); Mean Corpuscular Volume 88.7 fL (80.0-100.0); Nucleated Red Blood Cells % 0.1 %
[2025-03-31 10:54] LABS: Urine Protein, UAD TRACE (Negative)
[2025-03-31 11:11] LABS: Albumin 4.4 g/dL (3.2-4.8); Anion Gap 10 (5-15); Blood Urea Nitrogen 14 mg/dL (9-23); Calcium 9.4 mg/dL (8.7-10.4); Carbon Dioxide 24 mmol/L (20-31); Chloride 105 mmol/L (98-107); Glucose 102 mg/dL (74-106); Potassium 4.0 mmol/L (3.5-5.1); Sodium 139 mmol/L (136-145)
[2025-03-31 11:21] LABS: Alanine Aminotransferase 607 U/L (7-40); Alkaline Phosphatase 484 U/L (46-116); BUN/Creatinine Ratio 11.8 (10.0-20.0); Bilirubin, Total 10.4 mg/dL (0.2-1.0); Total Protein 7.6 g/dL (5.7-8.2)
[2025-03-31 15:39] LABS: Creatine Kinase IFCC 41 U/L (46-171)
[2025-04-01 10:42] LABS: Hepatitis B Surface Antigen Negative (Negative)
[2025-04-01 11:13] LABS: Hepatitis A Total Antibody Positive (Negative); Hepatitis C Antibody Negative (Negative)
== END 2025-03-31 17:00 | disposition home or self-care (01) ==
LOC: LAB 10:08
PROVIDERS: ATTEND Internal Medicine
DX: C41.9 Malignant neoplasm of bone and articular cartilage, unspecified (principal); M62.82 Rhabdomyolysis; R17 Unspecified jaundice; Z79.899 Other long term (current) drug therapy
CPT/HCPCS: 36415; 80053; 81001; 82550; 84100; 84439; 84443; 85025; 86705; 86706; 86708; 86709; 86803; 87086; 87340

== ENCOUNTER 2025-03-31 14:47 | Inpatient (IN) | payer OTHER ==
[~2025-03-31] VITALS: Ht 177.8 cm; Wt 112.7 kg
--- NOTE | 2025-03-31 15:26 | ED.PDOC ---
History of Present Illness HPI Comments A 79 YEAR OLD MALE PRESENTS TO THE ED WITH COMPLAINT OF ABNORMAL LAB RESULTS WITH GENERAL ABD DISTENTION. PATIENT STATES HE HAS BEEN EXPERIENCING ABDOMINAL DISTENTION FOR THE PAST 1 WEEK AND HEMATURIA FOR THE PAST 2 DAYS. PATIENT REPORTS HE WENT TO HIS PCP TODAY WHERE LABS WERE DRAWN AND WAS INFORMED THAT HIS RESULTS SHOWED LIVER FAILURE AND FOR HIM TO GO TO THE ED TODAY FOR A CT SCAN AND FURTHER EVALUATION. PATIENT DENIES DYSURIA, FLANK PAIN, FEVER, CHILLS, SHORTNESS OF BREATH, CHEST PAIN, NAUSEA, VOMITING, HEADACHE, OR OTHER COMPLAINTS. NO OTHER SYMPTOMS OR MODIFYING FACTORS AT THIS TIME. PATIENT IS ALERT, ORIENTED X 4, AND HAS STEADY GAIT. Chief Complaint: Abnormal LAB's Time Seen by MD: 14:50 Primary Care Provider: DOMINIC Reviewed Notes: Nurses Notes, Medications, Allergies Allergies: Coded Allergies: Benzalkonium Chloride (Verified Allergy, Unknown, 01/18/21) Dorzolamide (Verified Allergy, Unknown, 01/18/21) Lisinopril (Verified Allergy, Unknown, 07/07/21) Netarsudil (Verified Allergy, Unknown, 01/18/21) Timolol (Verified Allergy, Unknown, 01/18/21) Home Meds Active Scripts Acetaminophen (Tylenol 8 Hour Arthritis) 650 Mg Tab, 650 MG PO TID, #30 TAB Prov:GUILLERMINA SALDANA 09/25/23 Cephalexin Monohydrate (Cephalexin) 500 Mg Cap, 1 CAP PO QID, #32 CAP Prov:GUILLERMINA SALDANA 09/25/23 Reported Medications Melatonin (KP MELATONIN) 3 Mg Tab, 3 MG PO HS, TAB 02/27/23 Latanoprost (LATANOPROST) 0.005 % Padma, 0.005 % OP, ML 02/27/23 Triamcinolone Acetonide (Triamcinolone Acetonide) 0.025 % Cre, 0.025 % EX PRN, CRE 02/27/23 Docusate Sodium (Colace) 100 Mg Cap, 100 MG PO BID, CAP 02/27/23 Amlodipine Besylate (Amlodipine Besylate) 5 Mg Tab, 2.5 MG PO DAILY for blood pressure for 30 Days, MG 03/28/21 Cholecalciferol (D3) 2,000 Unit Cap, 2000 UNIT PO BID, CAP 08/19/16 Aspirin (Aspir-81) 81 Mg Tab, 1 TAB PO DAILY, #30 TAB 5 Refills 08/19/16 Information Source: Patient Mode of Arrival: Ambulatory Severity: Moderate Timing: Days Duration: Since onset, Days Prehospital treatment: None Medication Refill: For: Other (ABDOMINAL DISTENTION, HEMATURIA) Past Medical History PAST MEDICAL HISTORY: Cancer, HTN Surgical History: Denies all surgeries Surgical History (Other): LEFT KNEE SURGERY Family History Family History: Reviewed,noncontributory to illness Social History Smoker: Non-Smoker Alcohol: Denies ETOH Use Drugs: Denies Drug Use Lives In: Home Constitutional: denies: chills, diaphoresis, fatigue, fever, malaise, sweats, weakness, others EENTM: denies: blurred vision, double vision, ear bleeding, ear discharge, ear drainage, ear pain, ear ringing, eye pain, eye redness, hearing loss, mouth pain, mouth swelling, nasal discharge, nose bleeding, nose congestion, nose pain, photophobia, tearing, throat pain, throat swelling, voice changes, others Respiratory: denies: cough, hemoptysis, orthopnea, SOB at rest, shortness of breath, SOB with excertion, stridor, wheezing, others Cardiovascular: denies: chest pain, dizzy spells, diaphoresis, Dyspnea on ex ertion, edema, irregular heart beat, left arm pain, lightheadedness, palpitations, PND, syncope, others Gastrointestinal: reports: abdomen distended, abdominal pain; denies: blood streaked bowels, constipated, diarrhea, dysphagia, difficulty swallowing, hematemesis, melena, nausea, poor appetite, poor fluid intake, rectal bleeding, rectal pain, vomiting, others Genitourinary: reports: hematuria; denies: burning, dysuria, flank pain, frequency, incontinence, penile discharge, penile sore, pain, testicle pain, testicle swelling, urgency, others Neurological: denies: dizziness, fainting, headache, left sided numbness, left sided weakness, numbness, paresthesia, pre-existing deficit, right sided numbness, right sided weakness, seizure, speech problems, tingling, tremors, weakness, others Musculoskeletal: denies: back pain, gout, joint pain, joint swelling, muscle p ain, muscle stiffness, neck pain, others Integumetry: denies: bruises, change in color, change in hair/nails, dryness, laceration, lesions, lumps, rash, wounds, others Allergic/Immunocompromised: denies: Difficulty Healing, Frequent Infections, Hives, Itching, others Hematologic/Lymphatic: denies: anemia, blood clots, easy bleeding, easy bruising, swollen glands, others Endocrine: denies: excessive hunger, excessive sweating, excessive thirst, excessive urination, flushing, intolerance to cold, intolerance to heat, unexplained weight gain, unexplained weight loss, others Psychiatric: denies: anxiety, bipolar disorder, depression, hopeless, panic disorder, schizophrenia, sleepless, suicidal, others All Other Systems: Reviewed and Negative Physical Exam General Appearance: Obese HEENT: Normal ENT Inspection, Pharynx Normal, Scleral Icterus (L), Scleral Icterus (R), TMs Normal Neck: Full Range of Motion, Non-Tender, Normal, Normal Inspection Respiratory: Chest Non-Tender, Lungs Clear, No Accessory Muscle Use, No Respiratory Distress, Normal Breath Sounds Cardiovascular: No Edema, No JVD, No Murmur, No Gallop, Normal Peripheral Pulses, Regular Rate/Rhythm Breast Exam: Deferred Gastrointestinal: Distended, No Organomegaly, No Pulsatile Mass, Normal Bowel Sounds, Soft, Tenderness (GENERAL ABD WITH DISTENDED ABD, ASCITES?? 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 Was a procedure done?: No Differential Dx Considerations may include: HEMATURIA, KIDNEY STONE, LIVER FAILURE, LIVER CIRRHOSIS, TRANSAMINITIS, DEHYDRATION, ELECTROLYTE IMBALANCE, ASCITES, ACUTE UTI X-Ray, Labs, Meds, VS Vital Signs Date Time Temp Pulse Resp B/P (MAP) Pulse Ox O2 Delivery O2 Flow Rate FiO2 03/31/25 14:51 98.0 86 18 128/61 98 98.0 Lab Test 03/31/25 15:16 Range/Units White Blood Count 6.0 4.4-10.8 10^3/uL Red Blood Count 4.88 4.5-5.90 10^6/uL Hemoglobin 14.3 13.5-17.5 g/dL Hematocrit 43.0 41.0-53.0 % Mean Corpuscular Volume 88.2 80.0-100.0 fL Mean Corpuscular Hemoglobin 29.2 28.0-32.0 pg Mean Corpuscular Hemoglobin Concent 33.2 32.0-36.0 g/dL Red Cell Distribution Width 14.9 H 11.8-14.3 % Platelet Count 231 140-450 10^3/uL Mean Platelet Volume 8.5 6.9-10.8 fL Neutrophils (%) (Auto) 72.9 37.0-80.0 % Lymphocytes (%) (Auto) 14.1 10.0-50.0 % Monocytes (%) (Auto) 9.1 0.0-12.0 % Eosinophils (%) (Auto) 2.9 0.0-7.0 % Basophils (%) (Auto) 1.0 0.0-2.0 % Neutrophils # (Auto) 4.4 1.6-8.6 10 ^3/uL Lymphocytes # (Auto) 0.8 0.4-5.4 10 ^3/uL Monocytes # (Auto) 0.5 0-1.3 10 ^3/uL Eosinophils # (Auto) 0.2 0-0.8 10 ^3/uL Basophils # (Auto) 0.1 0-0.2 10 ^3/uL Nucleated Red Blood Cells 0.1 % Prothrombin Time 10.7 9.3-11.8 sec Prothrombin Time INR 1.01 0.9-1.15 Sodium Level 141 136-145 mmol/L Potassium Level 3.8 3.5-5.1 mmol/L Chloride Level 104 98-107 mmol/L Carbon Dioxide Level 25 20-31 mmol/L Anion Gap 12 5-15 Blood Urea Nitrogen 15 9-23 mg/dL Creatinine 1.32 H 0.700-1.30 mg/dL Glomerular Filtration Rate Calc 55 >90 mL/min BUN/Creatinine Ratio 11.4 10.0-20.0 Serum Glucose 103 74-106 mg/dL Calcium Level 9.4 8.7-10.4 mg/dL Total Bilirubin 10.7 H 0.2-1.0 mg/dL Aspartate Amino Transferase (AST) 232 H 13-40 U/L Alanine Aminotransferase (ALT) 597 H 7-40 U/L Alkaline Phosphatase 483 H 46-116 U/L Ammonia < 10 L 11-32 umol/L B-Type Natriuretic Peptide 42.11 0-100 pg/mL Total Protein 7.6 5.7-8.2 g/dL Albumin 4.4 3.2-4.8 g/dL Lipase 95 H 12-53 U/L X-Ray, Labs, Meds, VS Comment EXTERNAL MEDICAL RECORDS REVIEWED: PATIENT'S LAB RESULTS FROM HIS PRIMARY CARE PHYSICIAN'S TEST WERE REVIEWED BY ME. INDEPENDENT HISTORIANS: [NONE] SOCIAL DETERMINANTS OF HEALTH: [NONE] LABS ORDERED: PT/PTT, AMMONIA, UA, BNP REVIEWED AND INTERPRETED RESULTS: TBI 10.4, AST 240, ALT 607, ALP 484 IMAGING ORDERED: CT ABD/PEL: CT WAS CURRENTLY DOWN AT THIS TIME, SO CT IMAGES WERE UNABLE TO BE OBTAINED FOR THE TIME BEING. TREATMENTS ORDERED: HEP SALINE LOCK PROCEDURES PERFORMED: NONE CRITICAL CARE TIME: NONE I HAVE DISCUSSED THE PATIENT WITH THE ATTENDING PHYSICIAN DR. BUSTOS AND HE AGREES WITH THE PATIENT'S PLAN OF CARE. UPON MY PHYSICAL EXAMINATION, THE PATIENT HAD A DISTENDED ABDOMEN CONSISTENT WITH ASCITES/LIVER CIRRHOSIS. PATIENT'S PREVIOUS LAB RESULTS FROM EARLIER TODAY THAT WERE ORDERED BY HIS PRIMARY CARE PHYSICIAN WERE REVIEWED BY ME WHICH REVEALED A TOTAL BILIRUBIN OF 10.4, AST OF 240, ALT OF 607, AND ALP OF 484. DUE TO THE PATIENT'S LAB RESULTS AND PHYSICAL EXAM FINDINGS SUGGESTING LIVER CIRRHOSIS AND ASCITES, I HAVE DETERMINED THE PATIENT NEEDS TO BE ADMITTED FOR FURTHER TREATMENT AND EVALUATION. THE ON-CALL HOSPITALIST WILL BE CONTACTED FOR ADMISSION OF THIS PATIENT. Images Reviewed?: Images reviewed and evaluated by me Time of 1ST Reevaluation: 16:30 Reevaluation 1ST: Unchanged Patient Education/Counseling: Diagnosis, Treatment Family Education/Counseling: Diagnosis, Treatment SEPSIS Sepsis Screen Date sepsis recognized/suspect: Mar 31, 2025 Time Sepsis recognized/suspect: 145 Recent Procedure: No On Antibiotic Therapy: No Respiratory Rate >20: No Heart Rate >90: No Temp<36 C (96.8 F) or >38.3 C: No SBP <90 or MAP <65 mmHG: No New Acute Mental Status Change: No Is the patient on CPAP, BIPAP,: No Physician Orders Ct Ab Pel Wo Con-No Oral Or Iv (03/31/25 15:07) Urinalysis (03/31/25 15:07) Heplock Iv (03/31/25 ) Vital Signs Date Time Temp Pulse Resp B/P (MAP) Pulse Ox O2 Delivery O2 Flow Rate FiO2 03/31/25 14:51 98.0 86 18 128/61 98 98.0 Laboratory Tests Test 03/31/25 15:16 White Blood Count 6.0 10^3/uL (4.4-10.8) Departure 1 Departure Time of Disposition: 16:30 Impression: Primary Impression: Elevated liver enzymes Additional Impressions: Hyperbilirubinemia Ascites Qualified Codes: R18.8 - Other ascites Liver cirrhosis Qualified Codes: K74.60 - Unspecified cirrhosis of liver; R18.8 - Other ascites Disposition: ADMITTED INPATIENT Condition: Serious Critical Care Note Critical Care Time?: No Stability Stability form required: No Unstable for transfer: Requires medication, ED Physician Assesment, Possible rapid decline I personally scribed for GUILLERMINA SALDANA ([email or web address]) on 03/31/25 at 15:26. Electronically submitted by Fred Najera ([email or web address]). I personally scribed for GUILLERMINA SALDANA ([email or web address]) on 03/31/25 at 16:07. Electronically submitted by Fred Najera ([email or web address]). GUILLERMINA SALDANA Mar 31, 2025 15:26
[2025-03-31 15:43] LABS: INR 1.01 (0.9-1.15); Prothrombin Time 10.7 sec (9.3-11.8)
[2025-03-31] MEDS ORDERED: ONDANSETRON HCL 4 MG/2 ML VIAL IV PRN (16:30)
[2025-03-31 16:37] LABS: Hematocrit 43.0 % (41.0-53.0); Hemoglobin 14.3 g/dL (13.5-17.5); Mean Corpuscular Hemoglobin 29.2 pg (28.0-32.0); Mean Corpuscular Volume 88.2 fL (80.0-100.0); Nucleated Red Blood Cells % 0.1 %
--- NOTE | 2025-03-31 16:46 | DVHHP2 ---
History of Present Illness Reason for Visit: Abnormal labs and abdominal distention History of Present Illness Timothy Donahue is an 79-year-old male with past medical history of hernia, left knee surgery, hypertension, hyperlipidemia, liver failure, and stage IV lung cancer who presents to the ED with abnormal labs and abdominal distention x1 week. Patient also reports hematuria for the past 2 days. Patient's Nolvia is at the chair side. Patient reports that they had gone to get labs done upstairs with Dr. Jamaal Tavarez and when she saw him advised him to go down to ED. Patient reports that he is being seen at [facility] with the oncology team and getting Keytruda as treatment every 6 weeks last dose was on March 15 and next dose is on April 22 per patient's . Patient's also reports that patient has been feeling fatigued and weak not as active as his normal self since Friday. Patient denies any recent trauma or injury, recent sick contacts, recent travels, recent ingestion of spoiled food, chest pain, shortness of breath, fever, chills, lightheadedness, dizziness, abdominal pain, nausea, vomiting, or diarrhea. Cardiovascular: HTN, hyperipidemia Past Medical History Liver failure Stage IV lung cancer Past Surgical History: Hernia Repair, Other (Left knee surgery) Family History: Cancer, Other (Mom with cerebellar and lung cancer. Dad of MS.) Smoke: No ALCOHOL: none Drugs: None Lives: with Family Domestic Violence: Neg Review of Systems Gastrointestinal: Other (Abdominal distention) Genitourinary: Hematuria Allergies: Coded Allergies: Benzalkonium Chloride (Verified Allergy, Unknown, 01/18/21) Dorzolamide (Verified Allergy, Unknown, 01/18/21) Lisinopril (Verified Allergy, Unknown, 07/07/21) Netarsudil (Verified Allergy, Unknown, 01/18/21) Timolol (Verified Allergy, Unknown, 01/18/21) Exam Vital Signs Vital Signs Date Time Temp Pulse Resp B/P (MAP) Pulse Ox O2 Delivery O2 Flow Rate FiO2 03/31/25 14:51 98.0 86 18 128/61 98 98.0 General Appearance: Alert, Oriented X3, Cooperative, No acute distress HEENT: Atraumatic, PERRLA, EOMI, Mucous membr. moist/pink Respiratory: Clear to auscultation, Normal air movement Cardiovascular: Regular rate, Normal S1, Normal S2 Abdominal: Normal bowel sounds, Soft Extremities: No cyanosis, Normal pulses Neuro: Normal gait, Normal speech, Strength at 5/5 X4 ext, Normal tone, Se nsation intact Psych/Mental Status: Mental status NL, Mood NL Labs/Xrays Labs Test 03/31/25 15:16 Range/Units Prothrombin Time 10.7 9.3-11.8 sec Prothrombin Time INR 1.01 0.9-1.15 Ammonia < 10 L 11-32 umol/L B-Type Natriuretic Peptide 42.11 0-100 pg/mL SEPSIS Sepsis Screen Date sepsis recognized/suspect: Mar 31, 2025 Time Sepsis recognized/suspect: 1453 Recent Procedure: No On Antibiotic Therapy: No Respiratory Rate >20: No Heart Rate >90: No Temp<36 C (96.8 F) or >38.3 C: No SBP <90 or MAP <65 mmHG: No New Acute Mental Status Change: No Is the patient on CPAP, BIPAP,: No Physician Orders Ct Ab Pel Wo Con-No Oral Or Iv (03/31/25 15:07) Urinalysis (03/31/25 15:07) Heplock Iv (03/31/25 ) Complete Blood Count (03/31/25 16:23) Comprehensive Metabolic Panel (03/31/25 16:23) Alanine Aminotransferase (03/31/25 16:23) Aspartate Amino Transferase (03/31/25 16:23) Alkaline Phosphatase (03/31/25 16:23) Lipase (03/31/25 16:23) Vital Signs Date Time Temp Pulse Resp B/P (MAP) Pulse Ox O2 Delivery O2 Flow Rate FiO2 03/31/25 14:51 98.0 86 18 128/61 98 98.0 Laboratory Tests Test 03/31/25 15:16 White Blood Count Pending Assessment/Plan Assessment/Plan Assessment Hypophosphatemia Hyperbilirubinemia with scleral icterus Abdominal distention rule out ascites Hematuria Transaminitis Recently diagnosed liver failure Obesity History of hypertension History of hyperlipidemia History of stage IV lung cancer on Keytruda History of hernia History of left knee surgery Plan Admit to [facility] CT abdomen and pelvis Abdominal ultrasound ordered Antiemetics Pain management UA Ammonia level BNP PT/INR UA UDS NPO Avoid hepatotoxic medications Avoid anti coags due to hematuria reported Home medications reconciled DVT prophylaxis-SCDs PUD prophylaxis-PPIs Discussed plan of care with patient, patient's spouse and nurse GI evaluation Counseled patient on lifestyle modifications, diet, and exercise [id number] Preventive counseling healthy eating habits, physical activity, and regular checkups Plan discussed with: Patient My Orders Orders - CARRI AWAN Procedure Category Date Status Time Complete Blood Count LAB 03/31/25 In Process 16:23 Comprehensive LAB 03/31/25 In Process Metabolic Panel 16:23 Alanine LAB 03/31/25 In Process Aminotransferase 16:23 Aspartate Amino LAB 03/31/25 In Process Transferase 16:23 Alkaline Phosphatase LAB 03/31/25 In Process 16:23 Lipase LAB 03/31/25 In Process 16:23 Date of Service: Mar 31, 2025 Billing Provider: CARRI AWAN Common Visit Codes: 37165-[id number] INP/OBS CARE (HIGH) Secondary Visit Codes: [id number] COUNSELING IND, [id number] CARE PLAN 30 MINUTES CARRI AWAN Mar 31, 2025 16:46
[2025-03-31 17:00] LABS: Albumin 4.4 g/dL (3.2-4.8); Anion Gap 12 (5-15); Blood Urea Nitrogen 15 mg/dL (9-23); Calcium 9.4 mg/dL (8.7-10.4); Carbon Dioxide 25 mmol/L (20-31); Chloride 104 mmol/L (98-107); Glucose 103 mg/dL (74-106); Potassium 3.8 mmol/L (3.5-5.1); Sodium 141 mmol/L (136-145)
[2025-03-31] MEDS: NEUTRA-PHOS TABLET PO ONE (17:00)
[2025-03-31 17:01] LABS: Alanine Aminotransferase 597 U/L (7-40); Alkaline Phosphatase 483 U/L (46-116); BUN/Creatinine Ratio 11.4 (10.0-20.0); Bilirubin, Total 10.7 mg/dL (0.2-1.0); Lipase 95 U/L (12-53); Total Protein 7.6 g/dL (5.7-8.2)
--- NOTE | 2025-03-31 18:06 | DVH ---
EXAM: CT CT AB PEL WO CON-NO ORAL OR IV HISTORY: GENERAL ABD DISTENTION, ELEVATED LIVER ENZYMES, R/O ASCITES Comparison Study: None Exam Date: 03/31/2025 05:22 PM Radiation Dose Information: CT Dose: CTDI volume is 24.67 mGy. Dose-length product is 1345.19 mGy*cm Technique: Multidetector CT of the abdomen and pelvis was performed. Imaging was performed without IV contrast. Axial, coronal and sagittal multiplanar reformats were obtained from the axial data set by the technologist. Findings: Lack of intravenous contrast compromises evaluation of perfusion and for isodense lesions. Lower chest: Clear. Liver: Unremarkable Biliary system: Unremarkable Spleen: Unremarkable Pancreas: Unremarkable. Adrenals: Unremarkable. Kidneys and ureters: No hydronephrosis. Bilateral renal cysts. Punctate nonobstructing left intrarenal calculi. Bowel: No obstruction. Normal appendix. Scattered colonic diverticula. Bladder: Unremarkable Reproductive organs: No abnormal mass. Lymph nodes: Unremarkable. Peritoneum: No significant ascites. Vessels: Patency not evaluated on this noncontrast study. Bones and soft tissue: No aggressive osseous lesion. Bilateral fat containing inguinal hernia, [id number]. IMPRESSION: No acute CT findings in the abdomen and pelvis.
--- NOTE | 2025-03-31 18:11 | DVH ---
Abdominal ultrasound Clinical history: abd distension Technique: Complete abdominal ultrasound was performed. Findings: Liver: Enlarged measuring 19.5 cm with moderate diffuse fatty infiltration. Gallbladder: No stones, distention, wall thickening, or inflammatory changes. CBD: 0.7 cm, within normal limits for age. Pancreas: Not well seen due to overlying bowel gas. Right kidney: 12.2 cm. No stones or hydronephrosis. Kidney appears echogenic. Few scattered cysts measuring up to 4.8 x 5.0 x 4.4 cm. Left kidney: 12.7 cm. No stones or hydronephrosis. Kidney appears echogenic. Lower pole cyst measuring 5.1 cm. Free fluid: None. Spleen: Unremarkable. Impression: No clear cause for abdominal distention. Hepatic steatosis with hepatomegaly. Bilateral renal cortical cysts.
[2025-03-31 21:20] VITALS: BP 153/83; PULSE 75; RESP 17; TEMP 98.5; O2SAT 97
[2025-03-31] MEDS: CHOLECALCIFEROL (VITD3) 1,000UNIT=25mCg TAB PO SCH (21:45)
[2025-04-01] VITALS (8 sets, daily range): BP systolic 129–150; BP diastolic 76–88; PULSE 75–87; RESP 18–19; TEMP 98–98.3; O2SAT 96–97
[2025-04-01 06:13] LABS: Hematocrit 41.5 % (41.0-53.0); Hemoglobin 14.1 g/dL (13.5-17.5); Mean Corpuscular Hemoglobin 29.8 pg (28.0-32.0); Mean Corpuscular Volume 88.0 fL (80.0-100.0); Nucleated Red Blood Cells % 0.1 %
[2025-04-01 06:40] LABS: Anion Gap 12 (5-15); Blood Urea Nitrogen 15 mg/dL (9-23); Calcium 9.4 mg/dL (8.7-10.4); Carbon Dioxide 24 mmol/L (20-31); Chloride 105 mmol/L (98-107); Glucose 88 mg/dL (74-106); Sodium 141 mmol/L (136-145)
[2025-04-01 06:41] LABS: Albumin 4.1 g/dL (3.2-4.8)
[2025-04-01 06:42] LABS: BUN/Creatinine Ratio 13.5 (10.0-20.0)
[2025-04-01 06:43] LABS: Alkaline Phosphatase 470 U/L (46-116); Potassium 3.4 mmol/L (3.5-5.1)
[2025-04-01 06:44] LABS: Alanine Aminotransferase 558 U/L (7-40); Bilirubin, Total 10.7 mg/dL (0.2-1.0); Total Protein 7.2 g/dL (5.7-8.2)
--- NOTE | 2025-04-01 09:01 | DVHCONRES ---
Date Seen: Apr 01, 2025 Resident Creating Document: TAMY CURTIS History of Present Illness 79-year-old male who was sent to the ER by his PCP to follow up on labs and abdominal distention. Patient reports having abdominal distention for the past week. He says that he is not passing gas and last bowel movement was 3 days back. Patient underwent lives with showed cholestatic liver pattern. He had unremarkable LFTs 1 month back. 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 He is undergoing treatment at [facility], and receives keytruda every 6 weeks, last dose March 15 per chart review. Also reports pulling muscle inguinal ligament and feeling a mass in testes. Denies taking ibuprofen, Tylenol, Motrin or Aleve. Past medical /surgical history: Hernia, left knee mass status post radiation removal, hypertension, dyslipidemia, liver failure, lung cancer unspecified Social history: Denies smoking, drinking, drug use Patient seen and examined. Meld score 18. Ordered MRCP. Family History: FH: brain cancer G8 MOTHER FH: heart attack G8 FATHER Allergies: Coded Allergies: Benzalkonium Chloride (Verified Allergy, Unknown, 01/18/21) Dorzolamide (Verified Allergy, Unknown, 01/18/21) Lisinopril (Verified Allergy, Unknown, 07/07/21) Netarsudil (Verified Allergy, Unknown, 01/18/21) Timolol (Verified Allergy, Unknown, 01/18/21) Home Meds Active Scripts Acetaminophen (Tylenol 8 Hour Arthritis) 650 Mg Tab, 650 MG PO TID, #30 TAB Prov:GUILLERMINA SALDANA 09/25/23 Cephalexin Monohydrate (Cephalexin) 500 Mg Cap, 1 CAP PO QID, #32 CAP Prov:GUILLERMINA SALDANA 09/25/23 Reported Medications Melatonin (KP MELATONIN) 3 Mg Tab, 3 MG PO HS, TAB 02/27/23 Latanoprost (LATANOPROST) 0.005 % Padma, 0.005 % OP, ML 02/27/23 Triamcinolone Acetonide (Triamcinolone Acetonide) 0.025 % Cre, 0.025 % EX PRN, CRE 02/27/23 Docusate Sodium (Colace) 100 Mg Cap, 100 MG PO BID, CAP 02/27/23 Amlodipine Besylate (Amlodipine Besylate) 5 Mg Tab, 2.5 MG PO DAILY for blood pressure for 30 Days, MG 03/28/21 Cholecalciferol (D3) 2,000 Unit Cap, 2000 UNIT PO BID, CAP 08/19/16 Aspirin (Aspir-81) 81 Mg Tab, 1 TAB PO DAILY, #30 TAB 5 Refills 08/19/16 Current Medications Current Medications Medications (Trade) Dose Ordered Sig/Arturo Route PRN Reason Start Time Stop Time Status Last Admin Ondansetron HCl (Zofran) 4 mg Q4HP PRN IV NAUSEA / VOMITING 03/31/25 16:30 Morphine Sulfate 2 mg Q4HPRN PRN IV SEVERE PAIN (7-10 PAIN SCALE) 03/31/25 16:30 Amlodipine Besylate (Norvasc Tablet) 2.5 mg DAILY PO 04/01/25 10:00 Cholecalciferol (Vitamin D3 Tablet) 2,000 unit BID PO 03/31/25 22:00 03/31/25 21:45 Patient Own Medication 3 mg HS PO 03/31/25 22:00 Pantoprazole Sodium (Protonix) 40 mg DAILY IV 04/01/25 10:00 Ceftriaxone Sodium 50 ml @ 100 mls/hr DAILY@09 IV 04/01/25 09:00 UNV Vital Signs Vital Signs Date Time Temp Pulse Resp B/P (MAP) Pulse Ox O2 Delivery O2 Flow Rate FiO2 04/01/25 05:00 98.0 76 18 135/85 (102) 97 98.0 03/31/25 21:20 Room Air* 0 21 Physical Exam Obese male patient lying in the bed comfortably, no acute distress General: Obese, afebrile, palor, mucosae are moist Cardiovascular: Regular S1 and S2. No murmurs, gallops or rubs. No JVD elevation. Pedal edema more on the left greater than right Respiratory: Normal B/L air entry on room air. Clear lung sounds on auscultation Abdomen: Soft, nontender, distended, hypoactive bowel sounds, no rebound tenderness, no organomegaly, no masses Genitourinary: Mass fell in the left testes, soft, MSK/skin: Mobilizes 4 limbs. Skin is dry and warm Neurological: No motor, no sensitive deficits, normal speech. Pupils are isocoric and reactive. Psych/Mental Status: A/Ox3 Labs/Diagnostic Data Labs Test 04/01/25 05:01 03/31/25 15:16 Range/Units White Blood Count 5.1 4.4-10.8 10^3/uL Red Blood Count 4.72 4.5-5.90 10^6/uL Hemoglobin 14.1 13.5-17.5 g/dL Hematocrit 41.5 41.0-53.0 % Mean Corpuscular Volume 88.0 80.0-100.0 fL Mean Corpuscular Hemoglobin 29.8 28.0-32.0 pg Mean Corpuscular Hemoglobin Concent 33.8 32.0-36.0 g/dL Red Cell Distribution Width 14.8 H 11.8-14.3 % Platelet Count 218 140-450 10^3/uL Mean Platelet Volume 8.3 6.9-10.8 fL Neutrophils (%) (Auto) 72.2 37.0-80.0 % Lymphocytes (%) (Auto) 11.9 10.0-50.0 % Monocytes (%) (Auto) 10.6 0.0-12.0 % Eosinophils (%) (Auto) 4.3 0.0-7.0 % Basophils (%) (Auto) 1.0 0.0-2.0 % Neutrophils # (Auto) 3.7 1.6-8.6 10 ^3/uL Lymphocytes # (Auto) 0.6 0.4-5.4 10 ^3/uL Monocytes # (Auto) 0.5 0-1.3 10 ^3/uL Eosinophils # (Auto) 0.2 0-0.8 10 ^3/uL Basophils # (Auto) 0.1 0-0.2 10 ^3/uL Nucleated Red Blood Cells 0.1 % Sodium Level 141 136-145 mmol/L Potassium Level 3.4 L 3.5-5.1 mmol/L Chloride Level 105 98-107 mmol/L Carbon Dioxide Level 24 20-31 mmol/L Anion Gap 12 5-15 Blood Urea Nitrogen 15 9-23 mg/dL Creatinine 1.11 0.700-1.30 mg/dL Glomerular Filtration Rate Calc 67 >90 mL/min BUN/Creatinine Ratio 13.5 10.0-20.0 Serum Glucose 88 74-106 mg/dL Calcium Level 9.4 8.7-10.4 mg/dL Total Bilirubin 10.7 H 0.2-1.0 mg/dL Aspartate Amino Transferase (AST) 221 H 13-40 U/L Alanine Aminotransferase (ALT) 558 H 7-40 U/L Alkaline Phosphatase 470 H 46-116 U/L Total Protein 7.2 5.7-8.2 g/dL Albumin 4.1 3.2-4.8 g/dL Prothrombin Time 10.7 9.3-11.8 sec Prothrombin Time INR 1.01 0.9-1.15 Ammonia < 10 L 11-32 umol/L B-Type Natriuretic Peptide 42.11 0-100 pg/mL Lipase 95 H 12-53 U/L Assessment 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 2 mm benign-appearing ascending colon polyp was seen and moved by cold biopsy forceps 2. A 1 to 2 mm benign-appearing rectosigmoid polyp was seen and moved by cold biopsy forceps yes 3. Mild sigmoid diverticular disease 4. 1+ internal hemorrhoids otherwise normal examination up to the terminal ileum Plan: Dr. Arcos: Recommendation: Cholestatic liver disease likely in the setting of new medication. Follow up with hepatitis panel, Tylenol levels, MRCP ordered. Follow up with CMP CT abdomen/ultrasound unremarkable. Testicular ultrasound shows bilateral hydrocele Follow up with urine bacterial culture We will continue to follow up Thank you for consulting GI Plan discussed with patient in which all questions have been answered Case discussed with Dr. Arcos Plan discussed with: Patient TAYM CURTIS RESIDENT Apr 01, 2025 09:01
[2025-04-01 09:28] LABS: Magnesium 1.9 mg/dL (1.6-2.6)
[2025-04-01 09:38] LABS: Bilirubin, Direct 7.7 mg/dL (<0.3)
[2025-04-01] MEDS: PANTOPRAZOLE 40 MG/10 ML VIAL INJ IV SCH (10:41)
[2025-04-01] MEDS: POTASSIUM CHL 20 Meq TABLET PO ONE (10:54)
--- NOTE | 2025-04-01 11:15 | DVH ---
ULTRASOUND OF SCROTUM AND CONTENTS. INDICATION: likely hernia vs testicular mass COMPARISON: None TECHNIQUE: Multiple real-time grayscale sonographic and color and duplex Doppler images of the scrotum and its contents were obtained. FINDINGS: The right testicle measures 4 cm. The left testicle measures 4 cm. Both testicles demonstrate homogeneous echotexture without evidence of focal lesions. The right epididymal head measures 1 cm. Left epididymis is not visualized. Subsequent color and duplex Doppler interrogation of the testes demonstrated symmetric normal vascular flow to both testicles. no focal areas of hyperemia were seen. IMPRESSION: 1. No evidence of torsion, epididymitis, and/or orchitis. 2. Large bilateral hydroceles. 3. Hypoechoic structure seen along posterior scrotal wall. Findings are nonspecific.
[2025-04-01 14:29] LABS: Amphetamine Screen, Urine Neg (NEGATIVE); Barbiturate Scree,Urine Neg (NEGATIVE); Benzodiazephine Screen, Urine Neg (NEGATIVE)
[2025-04-01 14:30] LABS: Cannabinoid Screen, Urine Neg (NEGATIVE); Cocaine Screen, Urine Neg (NEGATIVE); Opiate Scree,Urine Neg (NEGATIVE); Phencyclidine Screen, Urine Neg (NEGATIVE)
[2025-04-01 14:31] LABS: Urine Protein, UAD TRACE (Negative)
[2025-04-01 15:08] LABS: COVID19 ANTIGEN SOFIA FIA NEGATIVE (NEGATIVE)
--- NOTE | 2025-04-01 17:27 | DVHPNRES ---
Progress Note Date Seen: Apr 01, 2025 Resident Creating Document: ELISEO KENNEY RESIDENT Medical Necessity Reason Pt with a Central, PICC or Fol: No Subjective Review of Systems Timothy Donahue is an 79-year-old male with past medical history of hernia, left knee surgery, hypertension, hyperlipidemia, liver failure, and osteosarcoma of knee, stage IV lung cancer who presents to the ED with abnormal labs and abdominal distention x1 week. Patient also reports hematuria for the past 2 days. Patient's Nolvia is at the chair side. Patient reports that they had gone to get labs done upstairs with Dr. Jamaal Tavarez and when she saw him advised him to go down to ED. Patient reports that he is being seen at [facility] with the oncology team and getting Keytruda as treatment every 6 weeks last dose was on March 15 and next dose is on April 22 per patient's . Patient's also reports that patient has been feeling fatigued and weak not as active as his normal self since Friday. Patient denies any recent trauma or injury, recent sick contacts, recent travels, recent ingestion of spoiled food, chest pain, shortness of breath, fever, chills, lightheadedness, dizziness, abdominal pain, nausea, vomiting, or diarrhea. Cardiovascular: HTN, hyperipidemia Past Medical History Liver failure Stage IV lung cancer, osteosarcoma of knee Past Surgical History: Hernia Repair, Other (Left knee surgery) Family History: Cancer, Other (Mom with cerebellar and lung cancer. Dad of [place].) Smoke: No ALCOHOL: none Drugs: None Lives: with Family General: patient denies fever, fatigue, weaknes, sweating, any recent changes in appetite and weight HEENT: No headaches, visiual changes, hearing loss, tinnitus, nasal congestion and discharge, and sore throat. Cardiovascular: Denies chest pain, palpitations, dyspnea on exertion, orthopnea, or claudication. Respiratory: No cough, and wheezing. Gastrointestinal: Complains of abdominal distention Genitourinary: No dysuria, hematuria, discharge, frequency, urgency, nocturia, incontinence, and urinary retention. Endocrine: No heat or cold intolerance, polydipsia, polyuria, and polyphagia. Neurological: No dizziness, extremity weakness and numbness, tremors, gait disturbance, seizures, and memory impairment. Psychiatric: Denies depression, anxiety,or insomnia. Musculoskeletal: Denies neck pain, stiffness and swelling, back pain, muscle weakness, joint pain, stiffness, swelling, or limited range of motion. Skin: No rashes, itching, skin lesion, changes in hair, nail, skin texture and breast. Hematologic/Lymphatic: Denies easy bruising, bleeding tendencies, or lymph node enlargement. Objective vital signs Vital Sign Date Time Temp Pulse Resp B/P (MAP) Pulse Ox O2 Delivery O2 Flow Rate FiO2 04/01/25 17:00 98.1 79 18 150/82 (104) 96 98.1 04/01/25 08:00 Room Air* 0 21 Total Intake and Output 03/31/25 03/31/25 04/01/25 15:00 23:00 07:00 Intake Total 500 ml Balance 500 ml medications Current Medications Medications Dose Ordered Sig/Arturo Route Start Time Stop Time Status Last Admin Dose Admin Ondansetron HCl 4 mg Q4HP PRN IV 03/31/25 16:30 Morphine Sulfate 2 mg Q4HPRN PRN IV 03/31/25 16:30 Amlodipine Besylate 2.5 mg DAILY PO 04/01/25 10:00 04/01/25 10:55 2.5 MG Cholecalciferol 2,000 unit BID PO 03/31/25 22:00 04/01/25 10:42 2,000 UNIT Patient Own Medication 3 mg HS PO 03/31/25 22:00 Pantoprazole Sodium 40 mg DAILY IV 04/01/25 10:00 04/01/25 10:41 40 MG Metronidazole 100 ml @ 100 mls/hr Q8HR IV 04/01/25 22:00 Ceftriaxone Sodium 50 ml @ 100 mls/hr DAILY@09 IV 04/02/25 09:00 laboratory and microbiology Laboratory Tests 04/01/25 05:01 Test 04/01/25 05:01 Range/Units Serum Glucose 88 74-106 mg/dL Problem List/Assessment/Plan Problem List/Assessment/Plan Assessment and plan Abdominal distention likely due to constipation/gas buildup Ruled out ascites Hypophosphatemia Hyperbilirubinemia with scleral icterus Transaminitis likely due to NAFLD Admit to med surge GI consult Follow MRCP Avoid hepatotoxic drugs Replete electrolytes CT abdomen and pelvis Abdominal ultrasound ordered Antiemetics Pain management UA Ammonia level BNP PT/INR UA UDS NPO Likely benign prostatic hypertrophy Follow prostate specific antigen levels To rule out autoimmune hepatitis Elevated ALVARO levels Anti smooth muscle antibody Ruled out Hematuria Negative urinalysis Obesity Filled on the importance of diet and exercise regimen Essential hypertension Continue home medications Target in-hospital blood pressure below 140/90 hyperlipidemia Continue home medications stage IV lung cancer on Keytruda History of osteosarcoma of knee, on remission Follow up with PCP on discharge History of hernia Follow up with PCP on discharge Goals of care discussed, full code Case discussed with Dr. Segura Plan discussed with: Patient My Orders My Orders Orders - ELISEO KENNEY Procedure Category Date Status Time Ceftriaxone 1gm/50ml PHA 04/02/25 In Process (Rocephin) 09:00 Clear Liq Diet DIET 04/01/25 Transmitted Dinner Date of Service: Apr 01, 2025 Billing Provider: PELON HAND MD Common Visit Codes: [id number] INP/OBS CARE(HIGH) ELISEO KENNEY Apr 01, 2025 17:27
--- NOTE | 2025-04-01 17:31 | DVH ---
PROCEDURE: MRI MRCP MRI Indication: cholestatitc live disease COMPARISON: None TECHNIQUE: Multiplanar multisequence images of the abdomen are obtianed per MRCP protocol. FINDINGS: The kidneys demonstrate no hydronephrosis. Bilateral renal cysts including right renal cysts measuring 4.9 cm, left renal cyst measuring 4.7 cm. Adrenal glands, spleen unremarkable. There is a T2 bright mass within the pancreatic head region measuring 3.2 x 2.6 cm. This results in dilatation of the common bile duct up to 10 mm. Dilatation of the right intrahepatic ducts up to 6 mm and left intrahepatic ducts up to 7 mm. There is Marked gallbladder distention. Pancreatic duct measures 3 mm in diameter. The stomach is partially distended. The imaged small bowel loops are normal in caliber. IMPRESSION: T2 bright mass within the pancreatic head region measuring 3.2 x 2.6 cm highly concerning for pancreatic neoplasm. Recommend MRI abdomen with and without contrast to further evaluate and GI/ oncology consultation. Dilated common bile duct and intrahepatic ducts secondary to the underlying pancreatic mass resulting in biliary obstruction. There is associated marked gallbladder distention as well. Other findings as described
[2025-04-01] MEDS: POTASSIUM EFFERVESENT TAB 25 MEQ PO ONE (18:34)
[2025-04-01] MEDS: MELATONIN 5 MG TAB PO ONE (23:47)
[2025-04-02 01:00] VITALS: BP 135/79; PULSE 75; RESP 19; TEMP 98.1; O2SAT 95
[2025-04-02 05:00] VITALS: BP 153/85; PULSE 67; RESP 17; TEMP 97.7; O2SAT 98
[2025-04-02 06:40] LABS: Hematocrit 40.0 % (41.0-53.0); Hemoglobin 13.3 g/dL (13.5-17.5); Mean Corpuscular Hemoglobin 29.4 pg (28.0-32.0); Mean Corpuscular Volume 88.2 fL (80.0-100.0); Nucleated Red Blood Cells % 0.0 %
[2025-04-02 06:57] LABS: Anion Gap 11 (5-15); Blood Urea Nitrogen 14 mg/dL (9-23); Calcium 9.5 mg/dL (8.7-10.4); Carbon Dioxide 23 mmol/L (20-31); Chloride 106 mmol/L (98-107); Glucose 96 mg/dL (74-106); Potassium 3.9 mmol/L (3.5-5.1); Sodium 140 mmol/L (136-145)
[2025-04-02 06:58] LABS: Albumin 3.9 g/dL (3.2-4.8)
[2025-04-02 07:01] LABS: Alanine Aminotransferase 447 U/L (7-40); Alkaline Phosphatase 458 U/L (46-116); BUN/Creatinine Ratio 12.2 (10.0-20.0); Bilirubin, Total 12.5 mg/dL (0.2-1.0); Total Protein 6.7 g/dL (5.7-8.2)
[2025-04-02 08:07] LABS: Prostate Specific Antigen 5.0 ng/mL (0.0-4.0)
[2025-04-02 09:00] VITALS: BP 153/86; PULSE 67; RESP 17; TEMP 98.4; O2SAT 98
--- NOTE | 2025-04-02 15:21 | DVHPNRES ---
Progress Note Date Seen: Apr 02, 2025 Resident Creating Document: ELISEO KENNEY Medical Necessity Reason Pt with a Central, PICC or Fol: No Subjective Review of Systems Patient seen at bedside. Spoke to patient and family about possible pancreatic cancer. Waiting for GI opinion. Patient might require higher level of care. Varicocele to be treated as outpatient after discharge. Timothy Donahue is an 79-year-old male with past medical history of hernia, left knee surgery, hypertension, hyperlipidemia, liver failure, and osteosarcoma of knee, stage IV lung cancer who presents to the ED with abnormal labs and abdominal distention x1 week. Patient also reports hematuria for the past 2 days. Patient's Nolvia is at the chair side. Patient reports that they had gone to get labs done upstairs with Dr. Jamaal Tavarez and when she saw him advised him to go down to ED. Patient reports that he is being seen at [facility] with the oncology team and getting Keytruda as treatment every 6 weeks last dose was on March 15 and next dose is on April 22 per patient's . Patient's also reports that patient has been feeling fatigued and weak not as active as his normal self since Friday. Patient denies any recent trauma or injury, recent sick contacts, recent travels, recent ingestion of spoiled food, chest pain, shortness of breath, fever, chills, lightheadedness, dizziness, abdominal pain, nausea, vomiting, or diarrhea. Cardiovascular: HTN, hyperipidemia Past Medical History Liver failure Stage IV lung cancer, osteosarcoma of knee Past Surgical History: Hernia Repair, Other (Left knee surgery) Family History: Cancer, Other (Mom with cerebellar and lung cancer. Dad of [place].) Smoke: No ALCOHOL: none Drugs: None Lives: with Family General: patient denies fever, fatigue, weaknes, sweating, any recent changes in appetite and weight HEENT: No headaches, visiual changes, hearing loss, tinnitus, nasal congestion and discharge, and sore throat. Cardiovascular: Denies chest pain, palpitations, dyspnea on exertion, orthopnea, or claudication. Respiratory: No cough, and wheezing. Gastrointestinal: Complains of abdominal distention Genitourinary: No dysuria, hematuria, discharge, frequency, urgency, nocturia, incontinence, and urinary retention. Endocrine: No heat or cold intolerance, polydipsia, polyuria, and polyphagia. Neurological: No dizziness, extremity weakness and numbness, tremors, gait disturbance, seizures, and memory impairment. Psychiatric: Denies depression, anxiety,or insomnia. Musculoskeletal: Denies neck pain, stiffness and swelling, back pain, muscle weakness, joint pain, stiffness, swelling, or limited range of motion. Skin: No rashes, itching, skin lesion, changes in hair, nail, skin texture and breast. Hematologic/Lymphatic: Denies easy bruising, bleeding tendencies, or lymph node enlargement. Objective vital signs Vital Sign Date Time Temp Pulse Resp B/P (MAP) Pulse Ox O2 Delivery O2 Flow Rate FiO2 04/02/25 09:01 153/65 04/02/25 09:00 98.4 67 17 98 98.4 04/02/25 07:38 Room Air* 0 21 Total Intake and Output 04/01/25 04/01/25 04/02/25 15:00 23:00 07:00 Intake Total 52 ml 480 ml Balance 52 ml 480 ml medications Current Medications Medications Dose Ordered Sig/Atruro Route Start Time Stop Time Status Last Admin Dose Admin Ondansetron HCl 4 mg Q4HP PRN IV 03/31/25 16:30 Morphine Sulfate 2 mg Q4HPRN PRN IV 03/31/25 16:30 Amlodipine Besylate 2.5 mg DAILY PO 04/01/25 10:00 04/02/25 09:01 2.5 MG Cholecalciferol 2,000 unit BID PO 03/31/25 22:00 04/02/25 09:03 2,000 UNIT Patient Own Medication 3 mg HS PO 03/31/25 22:00 Pantoprazole Sodium 40 mg DAILY IV 04/01/25 10:00 04/02/25 09:02 40 MG Ceftriaxone Sodium 50 ml @ 100 mls/hr DAILY@09 IV 04/02/25 09:00 04/02/25 09:03 100 MLS/HR Metronidazole 100 ml @ 100 mls/hr Q8H IV 04/01/25 22:45 04/02/25 15:01 100 MLS/HR Examination General Appearance: Alert, Oriented X3, Cooperative, No acute distress, jaundiced appearance HEENT: Atraumatic, PERRLA, EOMI, Mucous membrane moist/pink Respiratory: Clear to auscultation, Normal air movement Cardiovascular: Regular rate, Normal S1, Normal S2, No murmurs, no chest wall tenderness Abdominal: Abdomen distended, swelling in the scrotum Extremities: No clubbing, No cyanosis, No edema, Normal pulses, No tenderness/swelling Skin: No rashes, No breakdown, No significant lesion Neuro: Normal gait, Normal speech, Strength at 5/5 X4 ext, Normal tone, Sensation intact, Cranial nerves 3-12 NL, Reflexes 2+ Psych/Mental Status: Mental status NL, Mood NL laboratory and microbiology Laboratory Tests 04/02/25 05:48 Test 04/02/25 05:48 Range/Units Serum Glucose 96 74-106 mg/dL Problem List/Assessment/Plan Problem List/Assessment/Plan Assessment and plan Possible pancreatic cancer Hyperbilirubinemia with scleral icterus due to pancreatic mass Transaminitis likely due to above Abdominal distention likely due to constipation/gas buildup Ruled out ascites Hypophosphatemia Admit to med surge GI consult Follow MRCP Avoid hepatotoxic drugs Replete electrolytes CT abdomen and pelvis Abdominal ultrasound ordered Antiemetics Pain management UA Ammonia level BNP PT/INR UA UDS NPO Varicocele, bilateral Outpatient follow up with PCP on discharge Likely benign prostatic hypertrophy Follow prostate specific antigen levels To rule out autoimmune hepatitis Elevated ALVARO levels Anti smooth muscle antibody Ruled out Hematuria Negative urinalysis Obesity Filled on the importance of diet and exercise regimen Essential hypertension Continue home medications Target in-hospital blood pressure below 140/90 hyperlipidemia Continue home medications stage IV lung cancer on Keytruda History of osteosarcoma of knee, on remission Follow up with PCP on discharge History of hernia Follow up with PCP on discharge Goals of care discussed, full code Case discussed with Dr. Segura Plan discussed with: Patient My Orders My Orders Orders - ELISEO KENNEY RESIDENT Procedure Category Date Status Time Ceftriaxone 1gm/50ml PHA 04/02/25 In Process (Rocephin) 09:00 Mechanical Soft Diet DIET 04/02/25 Transmitted Lunch Complete Blood Count LAB 04/03/25 Verified 04:00 Comprehensive LAB 04/03/25 Verified Metabolic Panel 04:00 Date of Service: Apr 02, 2025 Billing Provider: PELNO HAND MD Common Visit Codes: [id number] INP/OBS CARE(HIGH) ELISEO KENNEY RESIDENT Apr 02, 2025 15:21
[2025-04-02 17:00] VITALS: BP 148/85; PULSE 63; RESP 16; TEMP 98.1; O2SAT 97
--- NOTE | 2025-04-02 18:30 | DVHPN2 ---
Progress Note - Dictate Date Seen: Apr 02, 2025 Medical Necessity Reason Pt with a Central, PICC or Fol: No Subjective No new complaints, patient resting comfortably No nausea vomiting or abdominal pain vital signs Vital Sign Date Time Temp Pulse Resp B/P (MAP) Pulse Ox O2 Delivery O2 Flow Rate FiO2 04/02/25 17:00 98.1 63 16 148/85 (106) 97 98.1 04/02/25 07:38 Room Air* 0 21 Total Intake and Output 04/01/25 04/01/25 04/02/25 15:00 23:00 07:00 Intake Total 52 ml 480 ml Balance 52 ml 480 ml medications Current Medications Medications Dose Ordered Sig/Arturo Route Start Time Stop Time Status Last Admin Dose Admin Ondansetron HCl 4 mg Q4HP PRN IV 03/31/25 16:30 Morphine Sulfate 2 mg Q4HPRN PRN IV 03/31/25 16:30 Amlodipine Besylate 2.5 mg DAILY PO 04/01/25 10:00 04/02/25 09:01 2.5 MG Cholecalciferol 2,000 unit BID PO 03/31/25 22:00 04/02/25 09:03 2,000 UNIT Patient Own Medication 3 mg HS PO 03/31/25 22:00 Pantoprazole Sodium 40 mg DAILY IV 04/01/25 10:00 04/02/25 09:02 40 MG Ceftriaxone Sodium 50 ml @ 100 mls/hr DAILY@09 IV 04/02/25 09:00 04/02/25 09:03 100 MLS/HR Metronidazole 100 ml @ 100 mls/hr Q8H IV 04/01/25 22:45 04/02/25 15:01 100 MLS/HR objective General: Obese, afebrile, palor, mucosae are moist Cardiovascular: Regular S1 and S2. No murmurs, gallops or rubs. Pedal edema more on the left greater than right Respiratory: Normal B/L air entry on room air. Clear lung sounds on auscultation Abdomen: Soft, nontender, distended, hypoactive bowel sounds, no rebound tenderness, no organomegaly, no masses MSK/skin: Mobilizes 4 limbs. Skin is dry and warm Neurological: No motor, no sensitive deficits, normal speech. Psych/Mental Status: A/Ox3 laboratory and microbiology Laboratory Tests 04/02/25 05:48 Test 04/02/25 05:48 Range/Units Serum Glucose 96 74-106 mg/dL MRCP IMPRESSION: T2 bright mass within the pancreatic head region measuring 3.2 x 2.6 cm highly concerning for pancreatic neoplasm. Recommend MRI abdomen with and without contrast to further evaluate and GI/ oncology consultation. Dilated common bile duct and intrahepatic ducts secondary to the underlying pancreatic mass resulting in biliary obstruction. There is associated marked gallbladder distention as well. Problems(with codes): (1) Elevated liver enzymes (2) Hyperbilirubinemia (3) Ascites (4) Pancreatic mass (5) Bilateral hydrocele Prognosis Assessment and plan Patient likely has elevated liver enzymes hyperbilirubinemia gallbladder distention related to biliary obstruction from a pancreatic mass Patient would have two options either for an ERCP with biliary stent placement or a palliative IR placed transhepatic biliary stent or cholecystostomy tube We will place an IR consult on Friday to discuss his options Check a CA 19 nine Prognosis remains guarded I will cancel order for ursodiol as the patient has underlying obstructive jaundice Plan discussed with: Patient SOO LOPEZ MD Apr 02, 2025 18:30
[2025-04-02 20:00] VITALS: PULSE 76; RESP 16; O2SAT 92
[2025-04-02 21:00] VITALS: BP 134/71; PULSE 76; RESP 16; TEMP 98.1; O2SAT 97
[2025-04-02] MEDS ORDERED: URSODIOL 300 MG CAP PO SCH (22:00)
[2025-04-03 06:51] LABS: Hematocrit 40.4 % (41.0-53.0); Hemoglobin 13.8 g/dL (13.5-17.5); Mean Corpuscular Hemoglobin 30.0 pg (28.0-32.0); Mean Corpuscular Volume 87.8 fL (80.0-100.0); Nucleated Red Blood Cells % 0.1 %
[2025-04-03 06:55] LABS: Albumin 4.0 g/dL (3.2-4.8); Anion Gap 13 (5-15); Blood Urea Nitrogen 12 mg/dL (9-23); Calcium 9.4 mg/dL (8.7-10.4); Carbon Dioxide 26 mmol/L (20-31); Chloride 103 mmol/L (98-107); Glucose 93 mg/dL (74-106); Sodium 142 mmol/L (136-145)
[2025-04-03 07:03] VITALS: BP 149/91; PULSE 67; O2SAT 97
[2025-04-03 07:14] LABS: Alanine Aminotransferase 369 U/L (7-40); Alkaline Phosphatase 474 U/L (46-116); BUN/Creatinine Ratio 9.8 (10.0-20.0); Bilirubin, Total 14.0 mg/dL (0.2-1.0); Potassium 3.4 mmol/L (3.5-5.1); Total Protein 7.0 g/dL (5.7-8.2)
[2025-04-03 08:00] VITALS: RESP 16
[2025-04-03 09:00] VITALS: BP 155/82; PULSE 68; RESP 20; TEMP 97.8; O2SAT 97
[2025-04-03] MEDS: POTASSIUM EFFERVESENT TAB 25 MEQ PO ONE (10:25)
[2025-04-03 13:00] VITALS: BP 159/80; PULSE 70; RESP 18; TEMP 98; O2SAT 97
--- NOTE | 2025-04-03 13:34 | DVHPNRES ---
Progress Note Date Seen: Apr 03, 2025 Resident Creating Document: HUONG KRISHNAMURTHY RESDIENT Medical Necessity Reason Pt with a Central, PICC or Fol: No Subjective Review of Systems Timothy Donahue is an 79-year-old male with past medical history of hernia, left knee surgery, hypertension, hyperlipidemia, liver failure, and osteosarcoma of knee, stage IV lung cancer who presents to the ED with abnormal labs and abdominal distention x1 week. Patient also reports hematuria for the past 2 days. Patient's Nolvia is at the chair side. Patient reports that they had gone to get labs done upstairs with Dr. Jamaal Tavarez and when she saw him advised him to go down to ED. Patient reports that he is being seen at [facility] with the oncology team and getting Keytruda as treatment every 6 weeks last dose was on March 15 and next dose is on April 22 per patient's . Patient's also reports that patient has been feeling fatigued and weak not as active as his normal self since Friday. Patient denies any recent trauma or injury, recent sick contacts, recent travels, recent ingestion of spoiled food, chest pain, shortness of breath, fever, chills, lightheadedness, dizziness, abdominal pain, nausea, vomiting, or diarrhea. 04/03, the patient is seen and examined at the bedside. Patient is clinically feeling better. Bilirubin is rising. Gastroenterology is considering ERCP versus stent placement. administrative services officer consulted for higher level of care transfer for ERCP. Objective vital signs Vital Sign Date Time Temp Pulse Resp B/P (MAP) Pulse Ox O2 Delivery O2 Flow Rate FiO2 04/03/25 09:50 155/82 04/03/25 09:00 97.8 68 20 97 97.8 04/03/25 08:00 Room Air* 0 21 Total Intake and Output 04/02/25 04/02/25 04/03/25 15:00 23:00 07:00 Intake Total 250 ml 1050 ml 200 ml Balance 250 ml 1050 ml 200 ml medications Current Medications Medications Dose Ordered Sig/Arturo Route Start Time Stop Time Status Last Admin Dose Admin Ondansetron HCl 4 mg Q4HP PRN IV 03/31/25 16:30 Morphine Sulfate 2 mg Q4HPRN PRN IV 03/31/25 16:30 Amlodipine Besylate 2.5 mg DAILY PO 04/01/25 10:00 04/03/25 09:50 2.5 MG Cholecalciferol 2,000 unit BID PO 03/31/25 22:00 04/03/25 09:50 2,000 UNIT Patient Own Medication 3 mg HS PO 03/31/25 22:00 Pantoprazole Sodium 40 mg DAILY IV 04/01/25 10:00 04/03/25 09:50 40 MG Ceftriaxone Sodium 50 ml @ 100 mls/hr DAILY@09 IV 04/02/25 09:00 04/03/25 09:50 100 MLS/HR Metronidazole 100 ml @ 100 mls/hr Q8H IV 04/01/25 22:45 04/03/25 05:55 100 MLS/HR Examination General Appearance: Alert, Oriented X3, Cooperative, No acute distress, jaundiced appearance HEENT: Atraumatic, PERRLA, EOMI, Mucous membrane moist/pink Respiratory: Clear to auscultation, Normal air movement Cardiovascular: Regular rate, Normal S1, Normal S2, No murmurs, no chest wall tenderness Abdominal: Abdomen distended, swelling in the scrotum Extremities: No clubbing, No cyanosis, No edema, Normal pulses, No tenderness/swelling Skin: No rashes, No breakdown, No significant lesion Neuro: Normal gait, Normal speech, Strength at 5/5 X4 ext, Normal tone, Sensation intact, Cranial nerves 3-12 NL, Reflexes 2+ Psych/Mental Status: Mental status NL, Mood NL laboratory and microbiology Laboratory Tests 04/03/25 05:26 Test 04/03/25 05:26 Range/Units Serum Glucose 93 74-106 mg/dL Microbiology Date/Time Source Procedure Growth Status 04/01/25 11:21 Voided Urine Urine Culture - Final Complete Problem List/Assessment/Plan Problem List/Assessment/Plan Possible pancreatic cancer Hyperbilirubinemia with scleral icterus due to pancreatic mass Transaminitis likely due to above Abdominal distention likely due to constipation/gas buildup Ruled out ascites Hypophosphatemia Admit to med surge GI consult Follow MRCP Avoid hepatotoxic drugs Replete electrolytes CT abdomen and pelvis Abdominal ultrasound ordered Antiemetics Pain management UA Ammonia level BNP PT/INR UA UDS NPO Varicocele, bilateral Outpatient follow up with PCP on discharge Likely benign prostatic hypertrophy Follow prostate specific antigen levels To rule out autoimmune hepatitis Elevated ALVARO levels Anti smooth muscle antibody Ruled out Hematuria Negative urinalysis Obesity Filled on the importance of diet and exercise regimen Essential hypertension Continue home medications Target in-hospital blood pressure below 140/90 hyperlipidemia Continue home medications stage IV lung cancer on Keytruda History of osteosarcoma of knee, on remission Follow up with PCP on discharge History of hernia Follow up with PCP on discharge Patient is clinically feeling better. Bilirubin is rising. Gastroenterology is considering ERCP versus stent placement. administrative services officer consulted for higher level of care transfer for ERCP. Goals of care discussed, full code Case discussed with Dr. Segura Plan discussed with: Patient, Spouse, Other (RN) My Orders My Orders Orders - HUONG KRISHNAMURTHY Procedure Category Date Status Time * Radiologist Consult CONS 04/04/25 Transmitted 08:00 * [employer] [employer] CONS 04/03/25 Transmitted Consult Date of Service: Apr 03, 2025 Billing Provider: PELON HAND MD Common Visit Codes: [id number] INP/OBS CARE(HIGH) ( ) HUONG KRISHNAMURTHY Apr 03, 2025 13:34
--- NOTE | 2025-04-03 14:03 | DVHPN2 ---
Progress Note - Dictate Date Seen: Apr 03, 2025 Medical Necessity Reason Pt with a Central, PICC or Fol: No Subjective No new complaints, patient resting comfortably No nausea vomiting or abdominal pain Transaminitis is improving However total bilirubin has gone up to 14 vital signs Vital Sign Date Time Temp Pulse Resp B/P (MAP) Pulse Ox O2 Delivery O2 Flow Rate FiO2 04/03/25 13:00 98.0 70 18 159/80 (106) 97 98.0 04/03/25 08:00 Room Air* 0 21 Total Intake and Output 04/02/25 04/02/25 04/03/25 15:00 23:00 07:00 Intake Total 250 ml 1050 ml 200 ml Balance 250 ml 1050 ml 200 ml medications Current Medications Medications Dose Ordered Sig/Arturo Route Start Time Stop Time Status Last Admin Dose Admin Ondansetron HCl 4 mg Q4HP PRN IV 03/31/25 16:30 Morphine Sulfate 2 mg Q4HPRN PRN IV 03/31/25 16:30 Amlodipine Besylate 2.5 mg DAILY PO 04/01/25 10:00 04/03/25 09:50 2.5 MG Cholecalciferol 2,000 unit BID PO 03/31/25 22:00 04/03/25 09:50 2,000 UNIT Patient Own Medication 3 mg HS PO 03/31/25 22:00 Pantoprazole Sodium 40 mg DAILY IV 04/01/25 10:00 04/03/25 09:50 40 MG Ceftriaxone Sodium 50 ml @ 100 mls/hr DAILY@09 IV 04/02/25 09:00 04/03/25 09:50 100 MLS/HR Metronidazole 100 ml @ 100 mls/hr Q8H IV 04/01/25 22:45 04/03/25 05:55 100 MLS/HR objective General: Obese, afebrile, palor, mucosae are moist Cardiovascular: Regular S1 and S2. No murmurs, gallops or rubs. Pedal edema more on the left greater than right Respiratory: Normal B/L air entry on room air. Clear lung sounds on auscultation Abdomen: Soft, nontender, distended, hypoactive bowel sounds, no rebound tenderness, no organomegaly, no masses MSK/skin: Mobilizes 4 limbs. Skin is dry and warm Neurological: No motor, no sensitive deficits, normal speech. Psych/Mental Status: A/Ox3 laboratory and microbiology Laboratory Tests 04/03/25 05:26 Test 04/03/25 05:26 Range/Units Serum Glucose 93 74-106 mg/dL Problems(with codes): (1) Bilateral hydrocele (2) Pancreatic mass (3) Elevated liver enzymes (4) Liver cirrhosis (5) Hyperbilirubinemia (6) Ascites Prognosis Assessment plan Suspected pancreatic mass causing biliary obstruction with upstream dilation of the bile duct and distention of the gallbladder Patient will need referral to higher level of care for possible EUS ERCP and stent placement Interventional radiology consult placed in case temporizing measures are required for worsening jaundice Patient's oncologist is at [facility] and he was advised follow up with his oncologist for further management of suspected pancreatic mass Plan discussed with: Patient, Other (Nurse and Dr Segura) SOO LOPEZ MD Apr 03, 2025 14:03
[2025-04-03 17:31] VITALS: BP 143/95; PULSE 75; RESP 18; TEMP 98.1; O2SAT 97
[2025-04-03] MEDS: POTASSIUM CHL 20 Meq TABLET PO ONE ×2 (18:16→18:17)
[2025-04-03] MEDS: POTASSIUM EFFERVESENT TAB 25 MEQ ONE (18:16)
[2025-04-03] MEDS: MELATONIN 5 MG TAB ONE (18:16)
[2025-04-03 21:00] VITALS: BP 131/81; PULSE 78; RESP 18; TEMP 97.5; O2SAT 97
[2025-04-04] VITALS (7 sets, daily range): BP systolic 119–153; BP diastolic 61–89; PULSE 66–86; RESP 14–18; TEMP 97.9–98.3; O2SAT 97–98
[2025-04-04 06:17] LABS: Hematocrit 39.0 % (41.0-53.0); Hemoglobin 13.3 g/dL (13.5-17.5); Mean Corpuscular Hemoglobin 29.9 pg (28.0-32.0); Mean Corpuscular Volume 87.5 fL (80.0-100.0); Nucleated Red Blood Cells % 0.0 %
[2025-04-04 06:26] LABS: Albumin 3.8 g/dL (3.2-4.8); Anion Gap 11 (5-15); Blood Urea Nitrogen 11 mg/dL (9-23); Calcium 9.3 mg/dL (8.7-10.4); Carbon Dioxide 26 mmol/L (20-31); Chloride 103 mmol/L (98-107); Glucose 93 mg/dL (74-106); Potassium 3.8 mmol/L (3.5-5.1); Sodium 140 mmol/L (136-145)
[2025-04-04 06:27] LABS: Alanine Aminotransferase 275 U/L (7-40); Alkaline Phosphatase 441 U/L (46-116); Bilirubin, Total 14.4 mg/dL (0.2-1.0)
[2025-04-04 06:47] LABS: BUN/Creatinine Ratio 8.9 (10.0-20.0)
[2025-04-04 06:59] LABS: Total Protein 6.6 g/dL (5.7-8.2)
[2025-04-04 11:59] LABS: Hepatitis A Total Antibody Positive (Negative); Hepatitis B Surface Antigen Negative (Negative); Hepatitis C Antibody Negative (Negative)
--- NOTE | 2025-04-04 14:30 | DVHPN2 ---
Progress Note Date Seen: Apr 04, 2025 Resident Creating Document: TAMY CURTIS RESIDENT Medical Necessity Reason Pt with a Central, PICC or Fol: No Subjective Review of Systems 79-year-old male who was sent to the ER by his PCP to follow up on labs and abdominal distention. Patient reports having abdominal distention for the past week. He says that he is not passing gas and last bowel movement was 3 days back. Patient underwent lives with showed cholestatic liver pattern. He had unremarkable LFTs 1 month back. 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 He is undergoing treatment at [facility], and receives keytruda every 6 weeks, last dose March 15 per chart review. Also reports pulling muscle inguinal ligament and feeling a mass in testes. Denies taking ibuprofen, Tylenol, Motrin or Aleve. Past medical /surgical history: Hernia, left knee mass status post radiation removal, hypertension, dyslipidemia, liver failure, lung cancer unspecified Social history: Denies smoking, drinking, drug use Patient seen and examined. Meld score 18. Ordered MRCP. 04/04-Patient seen and examined, bilirubin stable at 14. Patient is planned to have IR guided drain placement possibly tomorrow. LFTs stable, slightly downtrending Objective vital signs Vital Sign Date Time Temp Pulse Resp B/P (MAP) Pulse Ox O2 Delivery O2 Flow Rate FiO2 04/04/25 13:00 98.2 72 16 132/66 (88) 98 98.2 04/04/25 07:57 Room Air* 0 21 Total Intake and Output 04/03/25 04/03/25 04/04/25 15:00 23:00 07:00 Intake Total 50 ml 460 ml 500 ml Balance 50 ml 460 ml 500 ml medications Current Medications Medications Dose Ordered Sig/Arturo Route Start Time Stop Time Status Last Admin Dose Admin Ondansetron HCl 4 mg Q4HP PRN IV 03/31/25 16:30 Morphine Sulfate 2 mg Q4HPRN PRN IV 03/31/25 16:30 Amlodipine Besylate 2.5 mg DAILY PO 04/01/25 10:00 04/04/25 09:59 2.5 MG Cholecalciferol 2,000 unit BID PO 03/31/25 22:00 04/04/25 09:59 2,000 UNIT Patient Own Medication 3 mg HS PO 03/31/25 22:00 Pantoprazole Sodium 40 mg DAILY IV 04/01/25 10:00 04/04/25 09:59 40 MG Ceftriaxone Sodium 50 ml @ 100 mls/hr DAILY@09 IV 04/02/25 09:00 04/04/25 09:59 100 MLS/HR Metronidazole 100 ml @ 100 mls/hr Q8H IV 04/01/25 22:45 04/04/25 13:32 100 MLS/HR Examination General: Obese, afebrile, palor, mucosae are moist Cardiovascular: Regular S1 and S2. No murmurs, gallops or rubs. Pedal edema more on the left greater than right Respiratory: Normal B/L air entry on room air. Clear lung sounds on auscultation Abdomen: Soft, nontender, distended, hypoactive bowel sounds, no rebound tenderness, no organomegaly, no masses MSK/skin: Mobilizes 4 limbs. Skin is dry and warm Neurological: No motor, no sensitive deficits, normal speech. Psych/Mental Status: A/Ox3 laboratory and microbiology Laboratory Tests 04/04/25 05:38 Test 04/04/25 05:38 Range/Units Serum Glucose 93 74-106 mg/dL Microbiology Date/Time Source Procedure Growth Status 04/01/25 11:21 Voided Urine Urine Culture - Final Complete Labs and/or images reviewed: Labs reviewed by me, Image(s) reviewed by me Problem List/Assessment/Plan Problem List/Assessment/Plan Obstructive jaundice secondary to pancreatic head mass Cholestatic liver disease Direct Hyperbilirubinemia Pancreatic head mass Hepatic steatosis Acute kidney injury Questionable UTI Bilateral hydrocele Hypertension MRCP shows T2 bright mass within the pancreatic head region measuring 3.2 x 2.6 cm highly concerning for pancreatic neoplasm. Recommend MRI abdomen with and without contrast to further evaluate and GI/ oncology consultation. Dilated common bile duct and intrahepatic ducts secondary to the underlying pancreatic mass resulting in biliary obstruction. There is associated marked gallbladder distention as well. POSTOPERATIVE DIAGNOSES: 02/28/2023 1. 2 mm benign-appearing ascending colon polyp was seen and moved by cold biopsy forceps 2. A 1 to 2 mm benign-appearing rectosigmoid polyp was seen and moved by cold biopsy forceps yes 3. Mild sigmoid diverticular disease 4. 1+ internal hemorrhoids otherwise normal examination up to the terminal ileum Plan: Recommendation: Dr. Arcos: Bilirubin slightly up trended to 14.4. Otherwise LFTs downtrending. Suspected pancreatic mass causing biliary obstruction with upstream dilation of the bile duct and distention of the gallbladder Patient will need referral to higher level of care for possible EUS ERCP and stent placement . Consulted Interventional radiology to place a transhepatic drain meanwhile, given worsening jaundice. Patient's oncologist is at [facility] and he was advised follow up with his oncologist for further management of suspected pancreatic mass Hepatitis panel negative Plan discussed with patient, , daughter at bedside in which all questions answered Case discussed Dr. Arcos Plan discussed with: Patient, Spouse, Daughter (At bedside) TAMY CURTIS RESIDENT Apr 04, 2025 14:30
--- NOTE | 2025-04-04 16:26 | DVHPNRES ---
Progress Note Date Seen: Apr 04, 2025 Resident Creating Document: ELISEO KENNEY Medical Necessity Reason Pt with a Central, PICC or Fol: No Subjective Review of Systems Patient seen at bedside. Complains of increased jaundice. Total bilirubin trending up. Interventional radiology plan to put biliary drain tomorrow. Timothy Donahue is an 79-year-old male with past medical history of hernia, left knee surgery, hypertension, hyperlipidemia, liver failure, and osteosarcoma of knee, stage IV lung cancer who presents to the ED with abnormal labs and abdominal distention x1 week. Patient also reports hematuria for the past 2 days. Patient's Nolvia is at the chair side. Patient reports that they had gone to get labs done upstairs with Dr. Jamaal Tavarez and when she saw him advised him to go down to ED. Patient reports that he is being seen at [facility] with the oncology team and getting Keytruda as treatment every 6 weeks last dose was on March 15 and next dose is on April 22 per patient's . Patient's also reports that patient has been feeling fatigued and weak not as active as his normal self since Friday. Patient denies any recent trauma or injury, recent sick contacts, recent travels, recent ingestion of spoiled food, chest pain, shortness of breath, fever, chills, lightheadedness, dizziness, abdominal pain, nausea, vomiting, or diarrhea. Cardiovascular: HTN, hyperipidemia Past Medical History Liver failure Stage IV lung cancer, osteosarcoma of knee Past Surgical History: Hernia Repair, Other (Left knee surgery) Family History: Cancer, Other (Mom with cerebellar and lung cancer. Dad of ID.) Smoke: No ALCOHOL: none Drugs: None Lives: with Family General: patient denies fever, fatigue, weaknes, sweating, any recent changes in appetite and weight HEENT: No headaches, visiual changes, hearing loss, tinnitus, nasal congestion and discharge, and sore throat. Cardiovascular: Denies chest pain, palpitations, dyspnea on exertion, orthopnea, or claudication. Respiratory: No cough, and wheezing. Gastrointestinal: Complains of abdominal distention Genitourinary: No dysuria, hematuria, discharge, frequency, urgency, nocturia, incontinence, and urinary retention. Endocrine: No heat or cold intolerance, polydipsia, polyuria, and polyphagia. Neurological: No dizziness, extremity weakness and numbness, tremors, gait disturbance, seizures, and memory impairment. Psychiatric: Denies depression, anxiety,or insomnia. Musculoskeletal: Denies neck pain, stiffness and swelling, back pain, muscle weakness, joint pain, stiffness, swelling, or limited range of motion. Skin: No rashes, itching, skin lesion, changes in hair, nail, skin texture and breast. Hematologic/Lymphatic: Denies easy bruising, bleeding tendencies, or lymph node enlargement. Objective vital signs Vital Sign Date Time Temp Pulse Resp B/P (MAP) Pulse Ox O2 Delivery O2 Flow Rate FiO2 04/04/25 13:00 98.2 72 16 132/66 (88) 98 98.2 04/04/25 07:57 Room Air* 0 21 Total Intake and Output 04/03/25 04/03/25 04/04/25 15:00 23:00 07:00 Intake Total 50 ml 460 ml 500 ml Balance 50 ml 460 ml 500 ml medications Current Medications Medications Dose Ordered Sig/Arturo Route Start Time Stop Time Status Last Admin Dose Admin Ondansetron HCl 4 mg Q4HP PRN IV 03/31/25 16:30 Morphine Sulfate 2 mg Q4HPRN PRN IV 03/31/25 16:30 Amlodipine Besylate 2.5 mg DAILY PO 04/01/25 10:00 04/04/25 09:59 2.5 MG Cholecalciferol 2,000 unit BID PO 03/31/25 22:00 04/04/25 09:59 2,000 UNIT Patient Own Medication 3 mg HS PO 03/31/25 22:00 Pantoprazole Sodium 40 mg DAILY IV 04/01/25 10:00 04/04/25 09:59 40 MG Ceftriaxone Sodium 50 ml @ 100 mls/hr DAILY@09 IV 04/02/25 09:00 04/04/25 09:59 100 MLS/HR Metronidazole 100 ml @ 100 mls/hr Q8H IV 04/01/25 22:45 04/04/25 13:32 100 MLS/HR Examination General Appearance: Alert, Oriented X3, Cooperative, No acute distress, jaundiced appearance HEENT: Atraumatic, PERRLA, EOMI, Mucous membrane moist/pink Respiratory: Clear to auscultation, Normal air movement Cardiovascular: Regular rate, Normal S1, Normal S2, No murmurs, no chest wall tenderness Abdominal: Abdomen distended, swelling in the scrotum Extremities: No clubbing, No cyanosis, No edema, Normal pulses, No tenderness/swelling Skin: No rashes, No breakdown, No significant lesion Neuro: Normal gait, Normal speech, Strength at 5/5 X4 ext, Normal tone, Sensation intact, Cranial nerves 3-12 NL, Reflexes 2+ Psych/Mental Status: Mental status NL, Mood NL laboratory and microbiology Laboratory Tests 04/04/25 05:38 Test 04/04/25 05:38 Range/Units Serum Glucose 93 74-106 mg/dL Microbiology Date/Time Source Procedure Growth Status 04/01/25 11:21 Voided Urine Urine Culture - Final Complete Problem List/Assessment/Plan Problem List/Assessment/Plan Assessment and plan Possible pancreatic cancer Hyperbilirubinemia with scleral icterus due to pancreatic head mass Cholestatic liver disease Transaminitis likely due to above Hepatic steatosis Abdominal distention likely due to constipation/gas buildup Ruled out ascites Hypophosphatemia Admit to med surge GI consult Follow MRCP Avoid hepatotoxic drugs Replete electrolytes CT abdomen and pelvis Abdominal ultrasound ordered Antiemetics Pain management UA Ammonia level BNP PT/INR UA UDS NPO Hydrocele, bilateral Outpatient follow up with PCP on discharge Likely benign prostatic hypertrophy Follow prostate specific antigen levels To rule out autoimmune hepatitis Elevated ALVARO levels Anti smooth muscle antibody MADONNA likely due to VMN IV fluids Monitor renal function Ruled out Hematuria Negative urinalysis Obesity Filled on the importance of diet and exercise regimen Essential hypertension Continue home medications Target in-hospital blood pressure below 140/90 hyperlipidemia Continue home medications stage IV lung cancer on Keytruda History of osteosarcoma of knee, on remission Follow up with PCP on discharge History of hernia Follow up with PCP on discharge Goals of care discussed, full code Case discussed with Dr. Segura Plan discussed with: Patient Date of Service: Apr 04, 2025 Billing Provider: PELON HAND MD Common Visit Codes: [id number] INP/OBS CARE(HIGH) ELISEO KENNEY RESIDENT Apr 04, 2025 16:26
[2025-04-05] VITALS (10 sets, daily range): BP systolic 120–182; BP diastolic 59–95; PULSE 68–107; RESP 14–22; TEMP 97.8–100.7; O2SAT 90–98
[2025-04-05 07:42] LABS: Anion Gap 11 (5-15); Blood Urea Nitrogen 13 mg/dL (9-23); Calcium 9.1 mg/dL (8.7-10.4); Carbon Dioxide 24 mmol/L (20-31); Chloride 105 mmol/L (98-107); Potassium 3.5 mmol/L (3.5-5.1); Sodium 140 mmol/L (136-145)
[2025-04-05 07:44] LABS: Alanine Aminotransferase 231 U/L (7-40); Albumin 3.8 g/dL (3.2-4.8); Alkaline Phosphatase 446 U/L (46-116); Bilirubin, Total 15.2 mg/dL (0.2-1.0); Glucose 113 mg/dL (74-106)
[2025-04-05 07:46] LABS: BUN/Creatinine Ratio 9.6 (10.0-20.0)
[2025-04-05 07:50] LABS: Total Protein 6.6 g/dL (5.7-8.2)
[2025-04-05 08:01] LABS: Hematocrit 38.1 % (41.0-53.0); Hemoglobin 13.2 g/dL (13.5-17.5); Mean Corpuscular Hemoglobin 30.1 pg (28.0-32.0); Mean Corpuscular Volume 87.1 fL (80.0-100.0)
[2025-04-05 09:22] LABS: Total Cells Counted 100.0 (100)
[2025-04-05] MEDS: SODIUM CHLORIDE 0.9% 250 ML IV ONE (12:47)
[2025-04-05] MEDS: IODIXANOL 320MG/ML 100ML BTL IV ONE (14:36)
--- NOTE | 2025-04-05 14:50 | ECG ---
[facility] Test Date: 2025-04-05 Test Time: 14:39:25 Pat Name: VICTOR M CAST Department: Room: 0220 A Gender: M [employer] Technician: CHRIS : [id number] Requested By: SENA GARCIA Order Number: [id number] Reading MD: Elvis Eubanks Measurements Intervals [place] Rate: 75 P: 32 SC: 200 QRS: -56 QRSD: 136 T: 13 QT: 434 QTc: 484 Interpretive Statements Normal sinus rhythm Right bundle branch block Left anterior fascicular block Bifascicular block Electronically Signed On 04-06-2025 17:38:04 PST by Elvis Eubanks Please click the below link to view image of tracing.
[2025-04-05] MEDS: LIDOCAINE 2%HCL (LOCAL ANESTH.) INJ 20ML MDV ONE (14:53)
[2025-04-05] MEDS: fentaNYL CITRATE 100 MCG/2 ML VL ONE (14:58)
[2025-04-05] MEDS: MIDAZOLAM HCL 2MG/2ML 2ml VIAL (1mg/ml) ONE (14:59)
[2025-04-05] MEDS: MORPHINE SULFATE INJ 2 MG/ml SYRG IV PRN (15:53)
--- NOTE | 2025-04-05 16:02 | DVHPNRES ---
Progress Note Date Seen: Apr 05, 2025 Resident Creating Document: ELISEO KENNEY Medical Necessity Reason Pt with a Central, PICC or Fol: No Subjective Review of Systems Patient seen at bedside. Bilirubin rising. IR to place biliary drain today. Timothy Donahue is an 79-year-old male with past medical history of hernia, left knee surgery, hypertension, hyperlipidemia, liver failure, and osteosarcoma of knee, stage IV lung cancer who presents to the ED with abnormal labs and abdominal distention x1 week. Patient also reports hematuria for the past 2 days. Patient's Nolvia is at the chair side. Patient reports that they had gone to get labs done upstairs with Dr. Jamaal Tavarez and when she saw him advised him to go down to ED. Patient reports that he is being seen at [facility] with the oncology team and getting Keytruda as treatment every 6 weeks last dose was on March 15 and next dose is on April 22 per patient's . Patient's also reports that patient has been feeling fatigued and weak not as active as his normal self since Friday. Patient denies any recent trauma or injury, recent sick contacts, recent travels, recent ingestion of spoiled food, chest pain, shortness of breath, fever, chills, lightheadedness, dizziness, abdominal pain, nausea, vomiting, or diarrhea. Cardiovascular: HTN, hyperipidemia Past Medical History Liver failure Stage IV lung cancer, osteosarcoma of knee Past Surgical History: Hernia Repair, Other (Left knee surgery) Family History: Cancer, Other (Mom with cerebellar and lung cancer. Dad of [place].) Smoke: No ALCOHOL: none Drugs: None Lives: with Family General: patient denies fever, fatigue, weaknes, sweating, any recent changes in appetite and weight HEENT: No headaches, visiual changes, hearing loss, tinnitus, nasal congestion and discharge, and sore throat. Cardiovascular: Denies chest pain, palpitations, dyspnea on exertion, orthopnea, or claudication. Respiratory: No cough, and wheezing. Gastrointestinal: Complains of abdominal distention Genitourinary: No dysuria, hematuria, discharge, frequency, urgency, nocturia, incontinence, and urinary retention. Endocrine: No heat or cold intolerance, polydipsia, polyuria, and polyphagia. Neurological: No dizziness, extremity weakness and numbness, tremors, gait disturbance, seizures, and memory impairment. Psychiatric: Denies depression, anxiety,or insomnia. Musculoskeletal: Denies neck pain, stiffness and swelling, back pain, muscle weakness, joint pain, stiffness, swelling, or limited range of motion. Skin: No rashes, itching, skin lesion, changes in hair, nail, skin texture and breast. Hematologic/Lymphatic: Denies easy bruising, bleeding tendencies, or lymph node enlargement. Objective vital signs Vital Sign Date Time Temp Pulse Resp B/P (MAP) Pulse Ox O2 Delivery O2 Flow Rate FiO2 04/05/25 13:00 97.8 79 18 120/59 (79) 96 97.8 04/05/25 07:55 Room Air* 0 21 Total Intake and Output 04/04/25 04/04/25 04/05/25 15:00 23:00 07:00 Intake Total 250 ml 1150 ml 500 ml Balance 250 ml 1150 ml 500 ml medications Current Medications Medications Dose Ordered Sig/Arturo Route Start Time Stop Time Status Last Admin Dose Admin Ondansetron HCl 4 mg Q4HP PRN IV 03/31/25 16:30 Morphine Sulfate 2 mg Q4HPRN PRN IV 03/31/25 16:30 Amlodipine Besylate 2.5 mg DAILY PO 04/01/25 10:00 04/05/25 09:32 2.5 MG Cholecalciferol 2,000 unit BID PO 03/31/25 22:00 04/05/25 09:32 2,000 UNIT Patient Own Medication 3 mg HS PO 03/31/25 22:00 Pantoprazole Sodium 40 mg DAILY IV 04/01/25 10:00 04/05/25 09:32 40 MG Ceftriaxone Sodium 50 ml @ 100 mls/hr DAILY@09 IV 04/02/25 09:00 04/05/25 09:32 100 MLS/HR Metronidazole 100 ml @ 100 mls/hr Q8H IV 04/01/25 22:45 04/05/25 13:23 100 MLS/HR Examination General Appearance: Alert, Oriented X3, Cooperative, No acute distress, jaundiced appearance HEENT: Atraumatic, PERRLA, EOMI, Mucous membrane moist/pink Respiratory: Clear to auscultation, Normal air movement Cardiovascular: Regular rate, Normal S1, Normal S2, No murmurs, no chest wall tenderness Abdominal: Abdomen distended, swelling in the scrotum Extremities: No clubbing, No cyanosis, No edema, Normal pulses, No tenderness/swelling Skin: No rashes, No breakdown, No significant lesion Neuro: Normal gait, Normal speech, Strength at 5/5 X4 ext, Normal tone, Sensation intact, Cranial nerves 3-12 NL, Reflexes 2+ Psych/Mental Status: Mental status NL, Mood NL laboratory and microbiology Laboratory Tests 04/05/25 06:11 Test 04/05/25 06:11 Range/Units Serum Glucose 113 H 74-106 mg/dL Microbiology Date/Time Source Procedure Growth Status 04/01/25 11:21 Voided Urine Urine Culture - Final Complete Problem List/Assessment/Plan Problem List/Assessment/Plan Assessment and plan Possible pancreatic cancer Hyperbilirubinemia with scleral icterus due to pancreatic head mass Cholestatic liver disease Transaminitis likely due to above Hepatic steatosis Abdominal distention likely due to constipation/gas buildup Ruled out ascites Hypophosphatemia Admit to med surge IR consult Biliary drain Elevated total bilirubin GI consult Follow MRCP Avoid hepatotoxic drugs Replete electrolytes CT abdomen and pelvis Abdominal ultrasound ordered Antiemetics Pain management UA Ammonia level BNP PT/INR UA UDS NPO Hydrocele, bilateral Outpatient follow up with PCP on discharge Likely benign prostatic hypertrophy Follow prostate specific antigen levels To rule out autoimmune hepatitis Elevated ALVARO levels Anti smooth muscle antibody MADONNA likely due to VMN IV fluids Monitor renal function Ruled out Hematuria Negative urinalysis Obesity Filled on the importance of diet and exercise regimen Essential hypertension Continue home medications Target in-hospital blood pressure below 140/90 hyperlipidemia Continue home medications stage IV lung cancer on Keytruda History of osteosarcoma of knee, on remission Follow up with PCP on discharge History of hernia Follow up with PCP on discharge Goals of care discussed, full code Case discussed with Dr. Segura Plan discussed with: Patient My Orders My Orders Orders - ELISEO KENNEY RESIDENT Procedure Category Date Status Time Imaging Transfer ORDERS 04/04/25 Transmitted Request 16:50 Complete Blood Count LAB 04/06/25 Verified 04:00 Comprehensive LAB 04/06/25 Verified Metabolic Panel 04:00 Percutaneous Cholangio XY 04/05/25 Taken 15:16 Dietary Evaluation Review Comments: Monitor PO intake, lab values, weight trend, and I/O Expected Outcomes/Goals: Intake to meet >75% estimated needs Lab values to improve FU 5-7 days Date of Service: Apr 05, 2025 Billing Provider: PELON HAND MD Common Visit Codes: [id number] INP/OBS CARE(HIGH) ELISEO KENNEY RESIDENT Apr 05, 2025 16:02
--- NOTE | 2025-04-05 16:48 | DVHPN2 ---
Progress Note Date Seen: Apr 05, 2025 Resident Creating Document: TAMY CURTIS RESIDENT Medical Necessity Reason Pt with a Central, PICC or Fol: No Subjective Review of Systems 79-year-old male who was sent to the ER by his PCP to follow up on labs and abdominal distention. Patient reports having abdominal distention for the past week. He says that he is not passing gas and last bowel movement was 3 days back. Patient underwent lives with showed cholestatic liver pattern. He had unremarkable LFTs 1 month back. 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 He is undergoing treatment at [facility], and receives keytruda every 6 weeks, last dose March 15 per chart review. Also reports pulling muscle inguinal ligament and feeling a mass in testes. Denies taking ibuprofen, Tylenol, Motrin or Aleve. Past medical /surgical history: Hernia, left knee mass status post radiation removal, hypertension, dyslipidemia, liver failure, lung cancer unspecified Social history: Denies smoking, drinking, drug use Patient seen and examined. Meld score 18. Ordered MRCP. 04/04-Patient seen and examined, bilirubin stable at 14. Patient is planned to have IR guided drain placement possibly tomorrow. LFTs stable, slightly downtrending 04/05-patient seen and examined. Bilirubin 15. Reports no acute complaint. Undergoing IR guided drain. Objective vital signs Vital Sign Date Time Temp Pulse Resp B/P (MAP) Pulse Ox O2 Delivery O2 Flow Rate FiO2 04/05/25 16:09 68 14 133/74 (93) 96 04/05/25 15:44 98.6 98.6 04/05/25 07:55 Room Air* 0 21 Total Intake and Output 04/04/25 04/04/25 04/05/25 15:00 23:00 07:00 Intake Total 250 ml 1150 ml 500 ml Balance 250 ml 1150 ml 500 ml medications Current Medications Medications Dose Ordered Sig/Arturo Route Start Time Stop Time Status Last Admin Dose Admin Ondansetron HCl 4 mg Q4HP PRN IV 03/31/25 16:30 Morphine Sulfate 2 mg Q4HPRN PRN IV 03/31/25 16:30 04/05/25 15:53 2 MG Amlodipine Besylate 2.5 mg DAILY PO 04/01/25 10:00 04/05/25 09:32 2.5 MG Cholecalciferol 2,000 unit BID PO 03/31/25 22:00 04/05/25 09:32 2,000 UNIT Patient Own Medication 3 mg HS PO 03/31/25 22:00 Pantoprazole Sodium 40 mg DAILY IV 04/01/25 10:00 04/05/25 09:32 40 MG Ceftriaxone Sodium 50 ml @ 100 mls/hr DAILY@09 IV 04/02/25 09:00 04/05/25 09:32 100 MLS/HR Metronidazole 100 ml @ 100 mls/hr Q8H IV 04/01/25 22:45 04/05/25 13:23 100 MLS/HR Examination General: Obese, afebrile, palor, mucosae are moist Cardiovascular: Regular S1 and S2. No murmurs, gallops or rubs. Pedal edema more on the left greater than right Respiratory: Normal B/L air entry on room air. Clear lung sounds on auscultation Abdomen: Soft, nontender, distended, hypoactive bowel sounds, no rebound tenderness, no organomegaly, no masses MSK/skin: Mobilizes 4 limbs. Skin is dry and warm Neurological: No motor, no sensitive deficits, normal speech. Psych/Mental Status: A/Ox3 laboratory and microbiology Laboratory Tests 04/05/25 06:11 Test 04/05/25 06:11 Range/Units Serum Glucose 113 H 74-106 mg/dL Microbiology Date/Time Source Procedure Growth Status 04/01/25 11:21 Voided Urine Urine Culture - Final Complete Labs and/or images reviewed: Labs reviewed by me, Image(s) reviewed by me Problem List/Assessment/Plan Problem List/Assessment/Plan Obstructive jaundice secondary to pancreatic head mass Cholestatic liver disease Direct Hyperbilirubinemia Pancreatic head mass Hepatic steatosis Acute kidney injury Questionable UTI Bilateral hydrocele Hypertension MRCP shows T2 bright mass within the pancreatic head region measuring 3.2 x 2.6 cm highly concerning for pancreatic neoplasm. Recommend MRI abdomen with and without contrast to further evaluate and GI/ oncology consultation. Dilated common bile duct and intrahepatic ducts secondary to the underlying pancreatic mass resulting in biliary obstruction. There is associated marked gallbladder distention as well. POSTOPERATIVE DIAGNOSES: 02/28/2023 1. 2 mm benign-appearing ascending colon polyp was seen and moved by cold biopsy forceps 2. A 1 to 2 mm benign-appearing rectosigmoid polyp was seen and moved by cold biopsy forceps yes 3. Mild sigmoid diverticular disease 4. 1+ internal hemorrhoids otherwise normal examination up to the terminal ileum Plan: Recommendation: Dr. Arcos: Bilirubin slightly up trended to 15. Otherwise LFTs downtrending. Suspected pancreatic mass causing biliary obstruction with upstream dilation of the bile duct and distention of the gallbladder Undergoing IR guided transhepatic drain placement given worsening jaundice Patient will need referral to higher level of care for possible EUS ERCP and stent placement . Patient's oncologist is at [facility] and he was advised follow up with his oncologist for further management of suspected pancreatic mass Hepatitis panel negative Plan discussed with patient, , daughter at bedside in which all questions answered Case discussed Dr. Arcos Plan discussed with: Patient, Spouse Dietary Evaluation Review Comments: Monitor PO intake, lab values, weight trend, and I/O Expected Outcomes/Goals: Intake to meet >75% estimated needs Lab values to improve FU 5-7 days TAMY CURTIS RESIDENT Apr 05, 2025 16:48
[2025-04-05] MEDS: IBUPROFEN 600 MG TAB PO ONE (22:32)
[2025-04-06 01:00] VITALS: BP 146/85; PULSE 97; RESP 18; TEMP 99; O2SAT 93
[2025-04-06 05:00] VITALS: BP 125/71; PULSE 70; RESP 17; TEMP 97.5; O2SAT 100
[2025-04-06 06:09] LABS: Hematocrit 39.7 % (41.0-53.0); Hemoglobin 13.6 g/dL (13.5-17.5); Mean Corpuscular Hemoglobin 29.8 pg (28.0-32.0); Mean Corpuscular Volume 86.9 fL (80.0-100.0); Nucleated Red Blood Cells % 0.0 %
[2025-04-06 06:29] LABS: Albumin 3.8 g/dL (3.2-4.8); Anion Gap 11 (5-15); Blood Urea Nitrogen 15 mg/dL (9-23); Calcium 9.0 mg/dL (8.7-10.4); Carbon Dioxide 26 mmol/L (20-31); Chloride 101 mmol/L (98-107); Glucose 101 mg/dL (74-106); Potassium 4.2 mmol/L (3.5-5.1); Sodium 138 mmol/L (136-145)
[2025-04-06 06:30] LABS: Alanine Aminotransferase 186 U/L (7-40); Alkaline Phosphatase 412 U/L (46-116); Bilirubin, Total 10.7 mg/dL (0.2-1.0)
[2025-04-06 06:32] LABS: BUN/Creatinine Ratio 11.3 (10.0-20.0); Total Protein 6.8 g/dL (5.7-8.2)
[2025-04-06] MEDS: HYDROmorphone HCL 2 MG/ML VL/or syr IV PRN (06:55)
[2025-04-06 08:00] VITALS: PULSE 75; RESP 16; O2SAT 96
--- NOTE | 2025-04-06 08:30 | DVH ---
XY PERCUTANEOUS CHOLANGIO, US US GUIDANCE FOR NEEDLE PLACEME, HISTORY: Pancreatic head mass obstructing CBD with Bili 15, jaundice. PROCEDURE: Informed consent was obtained. The patient was placed in supine position on the fluoroscopic table. Limited ultrasound evaluation of the liver was performed. 1 gram of Ceftriaxone was given IV. The right lateral abdominal wall was prepped with chlorhexidine which was allowed to dry and draped in sterile fashion. Time out was performed. The entry site skin and soft tissues were infiltrated with Xylocaine to the liver capsule and IV sedation was administered. 21 gauge Accustick needle was advanced intercostally into a peripheral right biliary duct under US guidance. Following aspiration of a small amount of bile, gentle hand injection of contrast was performed to confirm positioning. Over a Mandril wire, a non-vascular access set was advanced. Utilizing a Hannibal Advantage wire/5 Mauritian Kumpe catheter combination, access through the common bile duct into the duodenum. Over Amplatz stiff wire, following serial dilatation of the soft tissues, an 8.5 Mauritian internal/ external biliary drainage catheter was placed, with distal loop coiled within the bowel. Contrast was injected to confirm positioning. The catheter was sutured at the skin surface and connected to gravity drainage. Sterile dressing was applied. No immediate complication was identified. Air Kerma 144 mGy FLUOROSCOPY TIME: 5.0 minutes. CONTRAST USED: 20 mL. SEDATION: Dr. Joel Garza was personally responsible for the administration of moderate sedation during the procedure performed, including the use of an independent trained observer who had no other duties during the procedure. The drugs utilized were IV fentanyl and versed (see nursing log for details). The total time of supervision by the attending physician was approximately 45 minutes. FINDINGS: Limited ultrasound images demonstrate moderate dilation of the intrahepatic/intra-and extrahepatic bile ducts to level of CBD where there is a filling defect from the obstructing mass. Completion images demonstrate catheter in position with appropriate drainage of the biliary tree. IMPRESSION: Biliary obstruction due to obstructing mass in the distal CBD, status post right sided percutaneous transhepatic internal/ external biliary drain placement. PLAN: Consider IV abx for infection prophylaxis. Routine exchanges every 3 months.
[2025-04-06 08:48] VITALS: BP 125/78; PULSE 73; RESP 18; TEMP 97.9; O2SAT 98
[2025-04-06] MEDS ORDERED: MORPHINE SULFATE 4 MG/ML SYR/VIAL IV PRN (09:45)
[2025-04-06 13:00] VITALS: BP 130/79; PULSE 61; RESP 16; TEMP 97.5; O2SAT 97
[2025-04-06] MEDS ORDERED: AUG875T PO (14:32)
--- NOTE | 2025-04-06 16:02 | DVHDSRES ---
Discharge Summary Date of Admission Resident Creating Document: ELISEO KENNEY RESIDENT Mar 31, 2025 at 16:29 Date of Discharge: Apr 06, 2025 Labs/Diagnostic Data: Laboratory Results Test 04/06/25 05:12 04/05/25 06:11 04/03/25 05:26 04/02/25 05:48 White Blood Count 10.0 10^3/uL (4.4-10.8) Red Blood Count 4.57 10^6/uL (4.5-5.90) Hemoglobin 13.6 g/dL (13.5-17.5) Hematocrit 39.7 % (41.0-53.0) Mean Corpuscular Volume 86.9 fL (80.0-100.0) Mean Corpuscular Hemoglobin 29.8 pg (28.0-32.0) Mean Corpuscular Hemoglobin Concent 34.3 g/dL (32.0-36.0) Red Cell Distribution Width 15.4 % (11.8-14.3) Platelet Count 238 10^3/uL (140-450) Mean Platelet Volume 8.3 fL (6.9-10.8) Neutrophils (%) (Auto) 83.3 % (37.0-80.0) Lymphocytes (%) (Auto) 10.0 % (10.0-50.0) Monocytes (%) (Auto) 6.4 % (0.0-12.0) Eosinophils (%) (Auto) 0.0 % (0.0-7.0) Basophils (%) (Auto) 0.3 % (0.0-2.0) Neutrophils # (Auto) 8.3 10 ^3/uL (1.6-8.6) Lymphocytes # (Auto) 1.0 10 ^3/uL (0.4-5.4) Monocytes # (Auto) 0.6 10 ^3/uL (0-1.3) Eosinophils # (Auto) 0 10 ^3/uL (0-0.8) Basophils # (Auto) 0 10 ^3/uL (0-0.2) Nucleated Red Blood Cells 0.0 % Sodium Level 138 mmol/L (136-145) Potassium Level 4.2 mmol/L (3.5-5.1) Chloride Level 101 mmol/L (98-107) Carbon Dioxide Level 26 mmol/L (20-31) Anion Gap 11 (5-15) Blood Urea Nitrogen 15 mg/dL (9-23) Creatinine 1.33 mg/dL (0.700-1.30) Glomerular Filtration Rate Calc 54 mL/min (>90) BUN/Creatinine Ratio 11.3 (10.0-20.0) Serum Glucose 101 mg/dL (74-106) Calcium Level 9.0 mg/dL (8.7-10.4) Total Bilirubin 10.7 mg/dL (0.2-1.0) Aspartate Amino Transferase (AST) 69 U/L (13-40) Alanine Aminotransferase (ALT) 186 U/L (7-40) Alkaline Phosphatase 412 U/L (46-116) Total Protein 6.8 g/dL (5.7-8.2) Albumin 3.8 g/dL (3.2-4.8) Differential Total Cells Counted 100.0 (100) Neutrophils % (Manual) 66 (37.0-80.0) Band Neutrophils % (Manual) 0 Lymphocytes % (Manual) 11 (10.0-50.0) Monocytes % (Manual) 14 (0-12) Eosinophils % (Manual) 8 (0-7) Basophils % (Manual) 0 (0.0-2.0) Metamyelocytes % (manual) 1 Myelocytes % (Manual) 0 Promyelocytes % (Manual) 0 Blast Cells % (Manual) 0 Reactive Lymphocytes 0 Platelet Estimate Adequate Carcinoembryonic Antigen 0.82 ng/mL (<=5.0) CA 19-9 Antigen 63 U/mL (0-35) Hepatitis A IgM Antibody Negative Hepatitis A Antibody Total Positive (Negative) Hepatitis B Surface Antigen Negative (Negative) Hepatitis B Surface Antibody Negative (Negative) Hepatitis B Core Total Antibody Negative (Negative) Hepatitis B Core IgM Antibody Negative (Negative) Hepatitis C Antibody Negative (Negative) Test 04/01/25 14:49 04/01/25 12:10 04/01/25 11:12 04/01/25 05:01 Lactic Acid Level 0.8 mmol/L (0.4-2.0) Free Prostate Specific Antigen 0.53 ng/mL (N/A) Percent Free Prostate Specific Ag 10.6 % (.) Prostate Specific Antigen Total 5.0 ng/mL (0.0-4.0) Anti-Actin Antibody 3 Units (0-19) Influenza Type A Antigen Negative (Negative) Influenza Type B Antigen Negative (Negative) SARS-CoV-2 Antigen (Rapid) Negative (NEGATIVE) Urine Color Dark-yellow (Yellow) Urine Clarity Turbid (Clear) Urine pH 6.0 (5.0-9.0) Urine Specific Nitro 1.020 (1.001-1.035) Urine Protein Trace (Negative) Urine Ketones 1+ (Negative) Urine Blood Trace /uL (Negative) Urine Nitrite Negative (Negative) Urine Bilirubin 3+ (Negative) Urine Urobilinogen Normal mg/dL (Negative) Urine Leukocyte Esterase 1+ /uL (Negative) Urine RBC 2 /hpf (0 - 3) Urine Microscopic WBC 10 /HPF (0-3) Urine Squamous Epithelial Cells Few /hpf (<5) Urine Bacteria None seen /hpf (None Seen) Urine Glucose Normal mg/dL (Normal) Urine Opiates Screen Neg (NEGATIVE) Urine Fentanyl Screen Neg (NEGATIVE) Urine Barbiturates Screen Neg (NEGATIVE) Urine Phencyclidine Screen Neg (NEGATIVE) Urine Amphetamines Screen Neg (NEGATIVE) Urine Benzodiazepines Screen Neg (NEGATIVE) Urine Cocaine Screen Neg (NEGATIVE) Urine Cannabinoids Screen Neg (NEGATIVE) Magnesium Level 1.9 mg/dL (1.6-2.6) Direct Bilirubin 7.7 mg/dL (<0.3) Lactate Dehydrogenase 287 U/L (120-246) Acetaminophen Level 2.0 UG/ML (10.0-20.0) Test 03/31/25 15:16 Prothrombin Time 10.7 sec (9.3-11.8) Prothrombin Time INR 1.01 (0.9-1.15) Ammonia < 10 umol/L (11-32) B-Type Natriuretic Peptide 42.11 pg/mL (0-100) Lipase 95 U/L (12-53) Other Laboratory Tests 04/06/25 05:12 Brief Hx & Hospital Course: Timothy Donahue is an 79-year-old male with past medical history of hernia, left knee surgery, hypertension, hyperlipidemia, liver failure, and osteosarcoma of knee, stage IV lung cancer who presents to the ED with abnormal labs and abdominal distention x1 week. Patient also reports hematuria for the past 2 days. Patient's Nolvia is at the chair side. Patient reports that they had gone to get labs done upstairs with Dr. Jamaal Tavarez and when she saw him advised him to go down to ED. Patient reports that he is being seen at [facility] with the oncology team and getting Keytruda as treatment every 6 weeks last dose was on March 15 and next dose is on April 22 per patient's . Patient's also reports that patient has been feeling fatigued and weak not as active as his normal self since Friday. Patient denies any recent trauma or injury, recent sick contacts, recent travels, recent ingestion of spoiled food, chest pain, shortness of breath, fever, chills, lightheadedness, dizziness, abdominal pain, nausea, vomiting, or diarrhea. Liver function tests were elevated, patient had Hypokalemia and acute kidney injury. total bilirubin levels increasing gradually. Abdominal ultrasound revealed hepatic steatosis and bilateral renal cortical cyst.MRCP revealed mass in the pancreatic head concerning for neoplasm. Testicular ultrasound revealed a large bilateral hydrocele. GI was consulted. Biliary drainage was done by intervention Radiology. Total bilirubin levels decreased. Due to the hospital having no oncologist or EUS for ERCP, patient was discharged and advised to follow up with higher level of care. DISCHARGE PLAN Follow up with PCP in 7 days Follow up with oncologist in 7 days Follow up with GI in 7 days Clean biliary drain regularly Condition at Discharge: Fair Final Diagnosis/Problems List Pancreatic head mass possible cancer Discharge Disposition: Home Discharge Instruct/Medications Diet: Cardiac 2g Na,low cholest Activity: No Restrictions, As Tolerated Follow Up/Referral: F/u with oncologist within 7 days F/u with GI in 7 days Medications: as per EHR Scheduled Acetaminophen (Tylenol 8 Hour Arthritis), 650 MG PO TID Amlodipine Besylate (Amlodipine Besylate), 2.5 MG PO DAILY, (Reported) Amoxicillin & Pot Clavulanate (Augmentin Tablet), 875 MG PO BID Aspirin (Aspir-81), 1 TAB PO DAILY, (Reported) Cephalexin Monohydrate (Cephalexin), 1 CAP PO QID Cholecalciferol (D3), 2,000 UNIT PO BID, (Reported) Docusate Sodium (Colace), 100 MG PO BID, (Reported) Melatonin (Kp Melatonin), 3 MG PO HS, (Reported) Triamcinolone Acetonide (Triamcinolone Acetonide), 0.025 % EX PRN, (Reported) Miscellaneous Medications Latanoprost (Latanoprost), 0.005 % OP, (Reported) Discharge Statement: "Patient was advised to return to the ER or call 911 if any headaches, dizziness, shortness of breath, chest pain, abdominal pain, bleeding, fevers, or worsening of medical condition. Patient was counseled about treatment plan, medications, possible side effects, patientverbalized understanding. All questions were answered to the best of my ability. This discharge took greater then 30 minutes in planning, reviewing documentation, counseling the patient, and discussing with other team members." ASSESSMENT ASSESSMENT Assessment Pancreatic head mass possible cancer ELISEO KENNEY RESIDENT Apr 06, 2025 16:02
--- NOTE | 2025-04-06 16:10 | DVHDSRES ---
Discharge Summary Date of Admission Resident Creating Document: ELISEO KENNEY RESIDENT Mar 31, 2025 at 16:29 Date of Discharge: Apr 06, 2025 Labs/Diagnostic Data: Laboratory Results Test 04/06/25 05:12 04/05/25 06:11 04/03/25 05:26 04/02/25 05:48 White Blood Count 10.0 10^3/uL (4.4-10.8) Red Blood Count 4.57 10^6/uL (4.5-5.90) Hemoglobin 13.6 g/dL (13.5-17.5) Hematocrit 39.7 % (41.0-53.0) Mean Corpuscular Volume 86.9 fL (80.0-100.0) Mean Corpuscular Hemoglobin 29.8 pg (28.0-32.0) Mean Corpuscular Hemoglobin Concent 34.3 g/dL (32.0-36.0) Red Cell Distribution Width 15.4 % (11.8-14.3) Platelet Count 238 10^3/uL (140-450) Mean Platelet Volume 8.3 fL (6.9-10.8) Neutrophils (%) (Auto) 83.3 % (37.0-80.0) Lymphocytes (%) (Auto) 10.0 % (10.0-50.0) Monocytes (%) (Auto) 6.4 % (0.0-12.0) Eosinophils (%) (Auto) 0.0 % (0.0-7.0) Basophils (%) (Auto) 0.3 % (0.0-2.0) Neutrophils # (Auto) 8.3 10 ^3/uL (1.6-8.6) Lymphocytes # (Auto) 1.0 10 ^3/uL (0.4-5.4) Monocytes # (Auto) 0.6 10 ^3/uL (0-1.3) Eosinophils # (Auto) 0 10 ^3/uL (0-0.8) Basophils # (Auto) 0 10 ^3/uL (0-0.2) Nucleated Red Blood Cells 0.0 % Sodium Level 138 mmol/L (136-145) Potassium Level 4.2 mmol/L (3.5-5.1) Chloride Level 101 mmol/L (98-107) Carbon Dioxide Level 26 mmol/L (20-31) Anion Gap 11 (5-15) Blood Urea Nitrogen 15 mg/dL (9-23) Creatinine 1.33 mg/dL (0.700-1.30) Glomerular Filtration Rate Calc 54 mL/min (>90) BUN/Creatinine Ratio 11.3 (10.0-20.0) Serum Glucose 101 mg/dL (74-106) Calcium Level 9.0 mg/dL (8.7-10.4) Total Bilirubin 10.7 mg/dL (0.2-1.0) Aspartate Amino Transferase (AST) 69 U/L (13-40) Alanine Aminotransferase (ALT) 186 U/L (7-40) Alkaline Phosphatase 412 U/L (46-116) Total Protein 6.8 g/dL (5.7-8.2) Albumin 3.8 g/dL (3.2-4.8) Differential Total Cells Counted 100.0 (100) Neutrophils % (Manual) 66 (37.0-80.0) Band Neutrophils % (Manual) 0 Lymphocytes % (Manual) 11 (10.0-50.0) Monocytes % (Manual) 14 (0-12) Eosinophils % (Manual) 8 (0-7) Basophils % (Manual) 0 (0.0-2.0) Metamyelocytes % (manual) 1 Myelocytes % (Manual) 0 Promyelocytes % (Manual) 0 Blast Cells % (Manual) 0 Reactive Lymphocytes 0 Platelet Estimate Adequate Carcinoembryonic Antigen 0.82 ng/mL (<=5.0) CA 19-9 Antigen 63 U/mL (0-35) Hepatitis A IgM Antibody Negative Hepatitis A Antibody Total Positive (Negative) Hepatitis B Surface Antigen Negative (Negative) Hepatitis B Surface Antibody Negative (Negative) Hepatitis B Core Total Antibody Negative (Negative) Hepatitis B Core IgM Antibody Negative (Negative) Hepatitis C Antibody Negative (Negative) Test 04/01/25 14:49 04/01/25 12:10 04/01/25 11:12 04/01/25 05:01 Lactic Acid Level 0.8 mmol/L (0.4-2.0) Free Prostate Specific Antigen 0.53 ng/mL (N/A) Percent Free Prostate Specific Ag 10.6 % (.) Prostate Specific Antigen Total 5.0 ng/mL (0.0-4.0) Anti-Actin Antibody 3 Units (0-19) Influenza Type A Antigen Negative (Negative) Influenza Type B Antigen Negative (Negative) SARS-CoV-2 Antigen (Rapid) Negative (NEGATIVE) Urine Color Dark-yellow (Yellow) Urine Clarity Turbid (Clear) Urine pH 6.0 (5.0-9.0) Urine Specific [place] 1.020 (1.001-1.035) Urine Protein Trace (Negative) Urine Ketones 1+ (Negative) Urine Blood Trace /uL (Negative) Urine Nitrite Negative (Negative) Urine Bilirubin 3+ (Negative) Urine Urobilinogen Normal mg/dL (Negative) Urine Leukocyte Esterase 1+ /uL (Negative) Urine RBC 2 /hpf (0 - 3) Urine Microscopic WBC 10 /HPF (0-3) Urine Squamous Epithelial Cells Few /hpf (<5) Urine Bacteria None seen /hpf (None Seen) Urine Glucose Normal mg/dL (Normal) Urine Opiates Screen Neg (NEGATIVE) Urine Fentanyl Screen Neg (NEGATIVE) Urine Barbiturates Screen Neg (NEGATIVE) Urine Phencyclidine Screen Neg (NEGATIVE) Urine Amphetamines Screen Neg (NEGATIVE) Urine Benzodiazepines Screen Neg (NEGATIVE) Urine Cocaine Screen Neg (NEGATIVE) Urine Cannabinoids Screen Neg (NEGATIVE) Magnesium Level 1.9 mg/dL (1.6-2.6) Direct Bilirubin 7.7 mg/dL (<0.3) Lactate Dehydrogenase 287 U/L (120-246) Acetaminophen Level 2.0 UG/ML (10.0-20.0) Test 03/31/25 15:16 Prothrombin Time 10.7 sec (9.3-11.8) Prothrombin Time INR 1.01 (0.9-1.15) Ammonia < 10 umol/L (11-32) B-Type Natriuretic Peptide 42.11 pg/mL (0-100) Lipase 95 U/L (12-53) Other Laboratory Tests 04/06/25 05:12 Brief Hx & Hospital Course: Timothy Donahue is an 79-year-old male with past medical history of hernia, left knee surgery, hypertension, hyperlipidemia, liver failure, and osteosarcoma of knee, stage IV lung cancer who presents to the ED with abnormal labs and abdominal distention x1 week. Patient also reports hematuria for the past 2 days. Patient's Nolvia is at the chair side. Patient reports that they had gone to get labs done upstairs with Dr. Jamaal Tavarez and when she saw him advised him to go down to ED. Patient reports that he is being seen at [facility] with the oncology team and getting Keytruda as treatment every 6 weeks last dose was on March 15 and next dose is on April 22 per patient's . Patient's also reports that patient has been feeling fatigued and weak not as active as his normal self since Friday. Patient denies any recent trauma or injury, recent sick contacts, recent travels, recent ingestion of spoiled food, chest pain, shortness of breath, fever, chills, lightheadedness, dizziness, abdominal pain, nausea, vomiting, or diarrhea. Liver function tests were elevated, patient had Hypokalemia and acute kidney injury. total bilirubin levels increasing gradually. Abdominal ultrasound revealed hepatic steatosis and bilateral renal cortical cyst.MRCP revealed mass in the pancreatic head concerning for neoplasm. Testicular ultrasound revealed a large bilateral hydrocele. GI was consulted. Biliary drainage was done by intervention Radiology. Total bilirubin levels decreased. Due to the hospital having no oncologist or EUS for ERCP, patient was discharged and advised to follow up with higher level of care. Discharge plan Follow up with PCP in 7 days Follow up with oncologist in 7 days Follow up with GI in 7 days Clean biliary drain regularly Continue home meds Condition at Discharge: Fair Final Diagnosis/Problems List Possible pancreatic cancer Hyperbilirubinemia with scleral icterus due to pancreatic head mass Cholestatic liver disease Transaminitis likely due to above Hepatic steatosis Abdominal distention likely due to constipation/gas buildup Ruled out ascites Hypophosphatemia stage IV lung cancer on Keytruda MADONNA likely due to VMN Hydrocele, bilateral Likely benign prostatic hypertrophy ruled out autoimmune hepatitis Ruled out Hematuria Obesity Essential hypertension hyperlipidemia History of hernia Discharge Disposition: Home Discharge Instruct/Medications Diet: Cardiac 2g Na,low cholest Activity: No Restrictions, As Tolerated Follow Up/Referral: Follow up with PCP in 7 days Follow up with oncologist in 7 days Follow up with GI in 7 days Clean biliary drain regularly Medications: as per EHR Scheduled Acetaminophen (Tylenol 8 Hour Arthritis), 650 MG PO TID Amlodipine Besylate (Amlodipine Besylate), 2.5 MG PO DAILY, (Reported) Amoxicillin & Pot Clavulanate (Augmentin Tablet), 875 MG PO BID Aspirin (Aspir-81), 1 TAB PO DAILY, (Reported) Cephalexin Monohydrate (Cephalexin), 1 CAP PO QID Cholecalciferol (D3), 2,000 UNIT PO BID, (Reported) Docusate Sodium (Colace), 100 MG PO BID, (Reported) Melatonin ( Melatonin), 3 MG PO HS, (Reported) Triamcinolone Acetonide (Triamcinolone Acetonide), 0.025 % EX PRN, (Reported) Miscellaneous Medications Latanoprost (Latanoprost), 0.005 % OP, (Reported) Discharge Statement: "Patient was advised to return to the ER or call 911 if any headaches, dizziness, shortness of breath, chest pain, abdominal pain, bleeding, fevers, or worsening of medical condition. Patient was counseled about treatment plan, medications, possible side effects, patientverbalized understanding. All questions were answered to the best of my ability. This discharge took greater then 30 minutes in planning, reviewing documentation, counseling the patient, and discussing with other team members." ASSESSMENT ASSESSMENT Assessment Pancreatic head mass possible cancer Date of Service: Apr 06, 2025 Billing Provider: PELON HAND MD Common Visit Codes: 48749-AKX/OBS DISCH DAY >30min ELISEO KENNEY Apr 06, 2025 16:10
[2025-04-06 16:58] VITALS: BP 130/79; PULSE 75; RESP 18; TEMP 97.9; O2SAT 96
== END 2025-04-06 19:00 | disposition home or self-care (01) | DRG 435 ==
LOC: ER 14:47 → OVERFLOW 16:29 → CENTRAL 21:10
PROVIDERS: ADMIT Student in an Organized Health Care Education/Training Program; ATTEND Student in an Organized Health Care Education/Training Program
PROC: 0F9530Z Drainage of Right Hepatic Duct with Drainage Device, Percutaneous Approach (ICD-10-PCS; principal; 2025-04-05)
PROC: BF4CZZZ Ultrasonography of Hepatobiliary System, All (ICD-10-PCS; 2025-04-05)
DX: C25.0 Malignant neoplasm of head of pancreas (principal); K83.1 Obstruction of bile duct; N17.0 Acute kidney failure with tubular necrosis; C34.90 Malignant neoplasm of unspecified part of unspecified bronchus or lung; E66.9 Obesity, unspecified; I10 Essential (primary) hypertension; R17 Unspecified jaundice; E83.39 Other disorders of phosphorus metabolism; K57.30 Diverticulosis of large intestine without perforation or abscess without bleeding; K63.5 Polyp of colon; N43.3 Hydrocele, unspecified; N28.1 Cyst of kidney, acquired; K64.8 Other hemorrhoids; N40.0 Benign prostatic hyperplasia without lower urinary tract symptoms; E78.5 Hyperlipidemia, unspecified; K86.9 Disease of pancreas, unspecified; R74.8 Abnormal levels of other serum enzymes; K82.8 Other specified diseases of gallbladder; Z20.822 Contact with and (suspected) exposure to COVID-19; Z88.8 Allergy status to other drugs, medicaments and biological substances; Z68.34 Body mass index [BMI] 34.0-34.9, adult
CPT/HCPCS: 36415; 47532; 74176; 74181; 76700; 76870; 76942; 80053; 80074; 80307; 80329; 81001; 82140; 82248; 82378; 82550; 83605; 83615; 83690; 83735; 83880; 84100; 84154; 84439; 84443; 85007; 85025; 85027; 85610; 86301; 86704; 86705; 86706; 86708; 86709; 86803; 87086; 87340; 87426; 87804; 93005; G0378; J2250; J2470; J3490; Q9967